=== PATIENT | male | born 1945 | race Asian ===

== ENCOUNTER 2020-12-01 22:57 | Emergency (ER) | payer MEDICARE, MEDICAID ==
[~2020-12-01] VITALS: Ht 170.2 cm; Wt 68.0 kg
--- NOTE | 2020-12-01 22:59 | NUR ---
[facility] BLS TO ER BED 1
[2020-12-01 23:10] VITALS: BP 138/74
--- NOTE | 2020-12-01 23:10 | NUR ---
BIBA FROM [facility] WITH C/O URINARY RETENTION. WAS STRAIGHT CATHED 4 X'S JUKEBOX CHECKER, NO URINE WAS OBTAINED. ABDOMEN IS ROUND AND FIRM
[2020-12-02 01:06] LABS: APPEARANCE,URINE CLOUDY (CLEAR); BILIRUBIN,URINE NEGATIVE (NEGATIVE); BLOOD, URINE 2+ (NEGATIVE); COLOR,URINE YELLOW (YELLOW); LEUKOCYTE ESTERASE ,URINE 2+ (NEGATIVE); NITRITE, URINE NEGATIVE (NEGATIVE); UGLUCOSE NEGATIVE (NEGATIVE)
[2020-12-02 01:22] LABS: RBC,URINE 0-5 /HPF (0-5); WBC,URINE TOO MANY TO COUNT /HPF (0-5)
[2020-12-02] MEDS ORDERED: CEPH-588 PO (01:54)
--- NOTE | 2020-12-02 02:00 | NUR ---
COUDET CATHETER INSERTED WITH IMMEDIATE RETURN CLOUDY YELLOW URINE. RED DRAINAGE NOTED AROUND MEATUS. UA OBTAINED AND SENT TO LAB
[2020-12-02] MEDS ORDERED: cefTRIAXone 1,000 MG VIAL ONE (03:25)
[2020-12-02] MEDS ORDERED: LIDOCAINE MPF 1% 5 ML ONE (03:26)
[2020-12-02] MEDS: cefTRIAXone 1,000 MG in LIDOCAINE MPF 1% 2.1 ML IM ONE (03:32)
--- NOTE | 2020-12-02 04:00 | NUR ---
RESTING IN BED WITH EYES CLOSED. RESPIRATIONS REGULAR AND UNLABORED. F/C CONTINUES TO DRAIN CLOUDY YELLOW URINE
--- NOTE | 2020-12-02 07:07 | NUR ---
REPORT AND CONTINUATION OF CARE REVEIVED FROM KOKO MOORE.
--- NOTE | 2020-12-02 07:30 | NUR ---
PATIENT OBSERVED IN BED RESTING, VSS, EMPTIED 1020CC OF DARK MATT/CLOUDY URINE FROM HARVEY CATHETER COLLECTION BAG.
--- NOTE | 2020-12-02 09:26 | NUR ---
PATIENT IN BED RESTING, VSS. PATIENT AWOKE WHEN REPOSITIONING IN BED, THEN RETURNED TO SLEEP.
--- NOTE | 2020-12-02 10:47 | NUR ---
PATIENT REPOSITIONED IN BED, AWAKE AND ALERT. VSS.
--- NOTE | 2020-12-02 12:03 | NUR ---
PATIENT IN BED AWAKE AND ALERT, VSS.
--- NOTE | 2020-12-02 12:37 | NUR ---
mealtray at bedside, emt assisting with feeding.
--- NOTE | 2020-12-02 13:43 | NUR ---
PATIENT IN BED AWAKE AND ALERT, HOB LOWERED PER PATIENT REQUEST. VSS
[2020-12-02 15:12] VITALS: BP 130/78
--- NOTE | 2020-12-02 15:15 | NUR ---
Patient discharged with v/s stable. Written and verbal after care instructions given and explained. Patient alert, oriented and verbalized understanding of instructions. Ambulance Transport with to senior care. All questions addressed prior to discharge. ID band removed. Patient advised to follow up with PMD. Rx of KEFLEX given. Patient educated on indication of medication including possible reaction and side effects. Opportunity to ask questions provided and answered.
== END 2020-12-02 15:15 | disposition home or self-care (01) ==
LOC: MED 22:57
DX: N39.0 Urinary tract infection, site not specified (principal); R33.9 Retention of urine, unspecified; I10 Essential (primary) hypertension; Z79.899 Other long term (current) drug therapy
CPT/HCPCS: 51702; 81001; 87086; 96372; 99285; J0696; J2001

== ENCOUNTER 2022-05-18 00:34 | Inpatient (IN) | payer OTHER, MEDICARE ==
[~2022-05-18] VITALS: Ht 167.6 cm; Wt 63.5 kg
[2022-05-18 00:34] VITALS: BP 125/72
[~2022-05-18 00:34] MED LIST: CEPH-588 PO
--- NOTE | 2022-05-18 00:34 | NUR ---
TO BED #03,BIBA FROM [facility] WITH C/O ABD DISTENTION FOR 12 HOURS.
[2022-05-18] MEDS ORDERED: MORPHINE SULFATE 4 MG/ML SYR IM ONE (00:55)
--- NOTE | 2022-05-18 01:01 | NUR ---
16 fr bailey catheter placed. 1400 mL of output. Addendum: 05/18/22 at 0653 by [email or web address] 1700mL output after FC placement
[2022-05-18] MEDS ORDERED: MORPHINE SULFATE 2 MG/ML SYR IM STA (01:02)
--- NOTE | 2022-05-18 01:10 | NUR ---
Urine collected sent to lab
[2022-05-18 01:16] LABS: BASOPHILS % (AUTO) 0.3 % (0.0-2.0); EOSINOPHILS % (AUTO) 0.1 % (0.0-4.0); HEMATOCRIT 40.1 % (36-52); HEMOGLOBIN 13.2 g/dL (12.0-18.0); LYMPHOCYTES # (AUTO) 0.8 K/uL (2.0-11.5); MEAN CORPUSCULAR HEMOGLOBIN 28 pg (27-31); MEAN CORPUSCULAR HGB CONC 33 g/dL (33-37); MEAN CORPUSCULAR VOLUME 86.6 fL (80-94); MONOCYTES # (AUTO) 0.6 K/uL (0.8-1.0); MONOCYTES % (AUTO) 5.1 % (1.7-9.3); NEUTROPHILS # (AUTO) 11.3 K/uL (1.8-7.7); NEUTROPHILS % (AUTO) 88.5 % (42.2-75.2); PLATELET COUNT (AUTO) 245 K/uL (140-450); RED BLOOD CELL COUNT(AUTO) 4.63 MIL/uL (4.20-6.10); WHITE BLOOD COUNT (AUTO) 12.7 K/uL (4.8-10.8)
[2022-05-18 01:23] LABS: APPEARANCE,URINE CLEAR (CLEAR); BILIRUBIN,URINE 1+ (NEGATIVE); BLOOD, URINE 3+ (NEGATIVE); COLOR,URINE YELLOW (YELLOW); LEUKOCYTE ESTERASE ,URINE 2+ (NEGATIVE); NITRITE, URINE NEGATIVE (NEGATIVE); UGLUCOSE NEGATIVE (NEGATIVE)
[2022-05-18 01:30] LABS: ALBUMIN 3.2 g/dL (3.4-5.0); ANION GAP 15.3 (8-16); ASPARTATE AMINOTRANSFERASE 7 U/L (15-37); CARBON DIOXIDE 26.3 mmol/L (21-32); CHLORIDE 103 mmol/L (98-107); CREATININE 2.2 mg/dL (0.6-1.3); GLUCOSE 183 mg/dL (74-106); POTASSIUM 4.6 mmol/L (3.5-5.1); SODIUM SERUM 140 mmol/L (136-145); TOTAL BILIRUBIN 0.9 mg/dL (0.0-1.0); UREA NITROGEN, BLOOD 53 mg/dL (7-18)
[2022-05-18 01:32] LABS: RBC,URINE 0-5 /HPF (0-5); WBC,URINE TOO MANY TO COUNT /HPF (0-5)
[2022-05-18] MEDS ORDERED: cefTRIAXone 1,000 MG VIAL ONE (02:29)
[2022-05-18] MEDS ORDERED: MORPHINE SULFATE 2 MG/ML SYR IVP PRN (03:00)
[2022-05-18] MEDS ORDERED: ONDANSETRON 4 MG/2 ML VIAL IVP PRN (03:00)
[2022-05-18] MEDS ORDERED: LORazepam 2 MG/ML VIAL IVP PRN (03:00)
[2022-05-18] MEDS ORDERED: ACETAMINOPHEN 325 MG TAB PO PRN (03:00)
--- NOTE | 2022-05-18 04:12 | NUR ---
Report given Shawn SUTHERLAND
[2022-05-18 04:25] VITALS: BP 83/53
--- NOTE | 2022-05-18 04:30 | NUR ---
RECEIVED REPORT FROM DAY SHIFT NURSE MARIBEL FOR CONTINUITY OF CARE. PATIENT IS A&O X0-1. PATIENT IS ON ROOM AIR, BREATHING IS NORMAL WITH SYMMETRICAL RISE AND FALL OF CHEST. IV IS A 24G LEFT RING FINGER; RUNNING NS 125. PATIENT HAS CATHETER; CATHETER SHOWS DARK BROWN TO BLACK URINE. PATIENT'S BP WAS 83/53. WILL NOTIFY OVEN DRIER TENDER PHYSICIAN.
[2022-05-18] MEDS: NACL 0.9% 1,000 ML IV SCH ×3 (04:45→19:00)
[2022-05-18] MEDS ORDERED: NACL 0.9% 1,000 ML IV SCH (06:20)
--- NOTE | 2022-05-18 07:30 | NUR ---
MESSAGED DR. MOSLEY ABOUT PATIENT'S BP BEING 83/53 AND COLOR OF URINE (SENDING PICTURE OF URINE TO ). DID NOT HEAR BACK. CALLED EXCHANGE AND WAS TOLD DR. MARQUEZ WAS VEHICLE FUEL SYSTEMS CONVERTER. PAGED DR. MARQUEZ AND MESSAGED HIM THE SAME MESSAGE DR. MOSLEY. RECEIVED A CALL BACK FROM DR. DAHL WHO WAS ACTUALLY VEHICLE FUEL SYSTEMS CONVERTER AT 0617. INFORMED DR[address] DAHL OF BP AND COLOR OF URINE. DR. DAHL ORDERED 1LITTER BOLUS TO BE DONE ON PATIENT. ADMINISTERED BOLUS. BOLUS FINISHED AT 0720; BP NOW 101/56. WILL ENDORSE TO DAY SHIFT NURSE.
--- NOTE | 2022-05-18 07:35 | NUR ---
ENDORSED TO DAY SHIFT NURSE ADZE FOR CONTINUITY OF CARE. PATIENT IS STABLE.
[2022-05-18 08:00] VITALS: BP 90/54
[2022-05-18 12:00] VITALS: BP 101/52
--- NOTE | 2022-05-18 14:09 | NUR ---
DC PLANNING PER NOTES, PT IS ALERT AND ORIENTED X0 THEREFORE SW OUTREACHED TO PTS DAUGHTERS RADU AND MARIBEL @ [phone] TO GATHER COLLATERAL INFORMATION, HOWEVER, NO ANSWER. UNABLE TO LEAVE MESSAGE.
[2022-05-18] MEDS ORDERED: DIGOXIN 0.25 MG/ML AMP IV SCH (14:30)
--- NOTE | 2022-05-18 15:00 | NUR ---
HERE, PATIENT SEEN. DIGOXIN GIVEN ORDERED, MONITORED CLOSELY STABLE AT HIS TIME.
[2022-05-18 16:00] VITALS: BP 96/50
--- NOTE | 2022-05-18 19:16 | NUR ---
RECEIVED REPORT FROM DAY SHIFT NURSE ADZE FOR CONTINUITY OF CARE. PT AWAKE IN BED. RESPIRATIONS EVEN AND UNLABORED ON RA. HARVEY CATHETER IN PLACE, DRAINING TO GRAVITY. IV SITE ON LEFT RING FINGER, INFUSING IVF. POC DISCUSSED WITH PT AND KOKO LOU. CALL LIGHT WITHIN REACH. SAFETY PRECAUTIONS IN PLACE.
[2022-05-18 20:00] VITALS: BP 107/67
--- NOTE | 2022-05-18 20:00 | NUR ---
Patient's Plan of Care was discussed and reviewed with CELLAR WORKER: LUIS MIGUEL RIVERA
--- NOTE | 2022-05-18 20:04 | NUR ---
V/S TAKEN. WITHIN NORMAL LIMITS. REMAINED IN BED, CLEAN AND DRY.
[2022-05-19] VITALS: BP 107/71
[2022-05-19] MEDS: NACL 0.9% 1,000 ML IV SCH (03:00)
[2022-05-19 04:00] VITALS: BP 95/68
--- NOTE | 2022-05-19 04:36 | NUR ---
V/S WAS TAKEN. DID MORNING CARE. PT TOLERATED WELL. NO SIGNS OF PAIN. NO DISTRESS NOTED.
[2022-05-19 07:07] LABS: BASOPHILS % (AUTO) 0.2 % (0.0-2.0); EOSINOPHILS # (AUTO) 0.1 K/uL (0-0.4); EOSINOPHILS % (AUTO) 0.8 % (0.0-4.0); HEMATOCRIT 32.1 % (36-52); HEMOGLOBIN 10.6 g/dL (12.0-18.0); LYMPHOCYTES % (AUTO) 12.8 % (20.5-51.1); MEAN CORPUSCULAR HEMOGLOBIN 29 pg (27-31); MEAN CORPUSCULAR HGB CONC 33 g/dL (33-37); MEAN CORPUSCULAR VOLUME 87.9 fL (80-94); MONOCYTES # (AUTO) 0.5 K/uL (0.8-1.0); MONOCYTES % (AUTO) 6.2 % (1.7-9.3); NEUTROPHILS # (AUTO) 6.3 K/uL (1.8-7.7); PLATELET COUNT (AUTO) 177 K/uL (140-450); RED BLOOD CELL COUNT(AUTO) 3.65 MIL/uL (4.20-6.10); RED CELL DISTRIBUTION WIDTH 14.9 % (11.6-13.7); WHITE BLOOD COUNT (AUTO) 7.8 K/uL (4.8-10.8)
--- NOTE | 2022-05-19 07:17 | NUR ---
GAVE BEDSIDE REPORT TO KOKO CALLAWAY. ALL NEEDS MET THROUGHOUT SHIFT. PT IS STABLE.
[2022-05-19 07:22] LABS: ALBUMIN 2.6 g/dL (3.4-5.0); ANION GAP 14.6 (8-16); CARBON DIOXIDE 23.9 mmol/L (21-32); CHLORIDE 112 mmol/L (98-107); CREATININE 1.2 mg/dL (0.6-1.3); GLUCOSE 90 mg/dL (74-106); MAGNESIUM 2.1 mg/dL (1.8-2.4); POTASSIUM 3.5 mmol/L (3.5-5.1); SODIUM SERUM 147 mmol/L (136-145); TOTAL BILIRUBIN 0.4 mg/dL (0.0-1.0); UREA NITROGEN, BLOOD 53 mg/dL (7-18)
[2022-05-19 07:33] LABS: ASPARTATE AMINOTRANSFERASE 3 U/L (15-37)
[2022-05-19 08:00] VITALS: BP 128/59
--- NOTE | 2022-05-19 10:18 | NUR ---
PATIENT HAS BEEN SCREENED AND CATEGORIZED MODERATE NUTRITION RISK. PATIENT WILL BE SEEN WITHIN 3-5 DAYS OF ADMISSION. MINNA SHAH RD
[2022-05-19] MEDS: NACL 0.45% 1,000 ML IV SCH ×2 (11:00→19:45)
[2022-05-19 12:00] VITALS: BP 131/78
[2022-05-19 16:00] VITALS: BP 133/81
--- NOTE | 2022-05-19 19:05 | NUR ---
RECEIVED REPORT FROM DAY SHIFT NURSE NILTON FOR CONTINUITY OF CARE. PT AWAKE IN BED. ON REGULATORY MANAGER. RESPIRATIONS EVEN AND UNLABORED ON RA. NO SIGNS OF PAIN. IVF INFUSING. POC DISCUSSED WITH THE PT AND RN DASHA. CALL LIGHT WITHIN REACH. SAFETY PRECAUTIONS IN PLACE.
[2022-05-19 20:00] VITALS: BP 134/75
--- NOTE | 2022-05-19 20:00 | NUR ---
Patient's Plan of Care was discussed and reviewed with ROUTER TENDER: LUIS MIGUEL RIVERA
[2022-05-19] MEDS: METOPROLOL 25 MG TAB PO SCH (20:37)
--- NOTE | 2022-05-19 20:37 | NUR ---
V/S TAKEN. ADMINISTERED DUE MEDS. PT TOLERATED WELL.
[2022-05-20] VITALS: BP 158/85
[2022-05-20] MEDS: NACL 0.45% 1,000 ML IV SCH ×3 (00:35→15:52)
[2022-05-20 04:00] VITALS: BP 166/91
--- NOTE | 2022-05-20 04:00 | NUR ---
PT WAS UNEASY, MOANING, IRRITABLE. DID MORNING CARE. PT HAD BM. CLEANED AND CHANGED DIAPERS. PT TOLERATED WELL.
--- NOTE | 2022-05-20 04:27 | NUR ---
PT STILL MOANING, RESTLESS, TEARY EYED, BP WAS ELEVATED. KOKO LOU WAS INFORMED. PRN MED FOR PAIN WAS GIVEN BY RN. PT CLOSELY MONITORED.
--- NOTE | 2022-05-20 07:10 | NUR ---
ENDORSED PT TO KOKO SONI FOR CONTINUITY OF CARE. ALL NEEDS MET THROUGHOUT SHIFT. PT IS STABLE.
[2022-05-20 08:00] VITALS: BP 156/78
[2022-05-20] MEDS: METOPROLOL 25 MG TAB PO SCH (09:32)
[2022-05-20] MEDS ORDERED: METO25TA PO (09:56)
[2022-05-20] MEDS ORDERED: CEFD300C3 PO (09:56)
[2022-05-20] MEDS ORDERED: ACET-1182 PO (09:58)
--- NOTE | 2022-05-20 12:28 | NUR ---
CALL [facility] AND RECEIVE UPDATE INFORMATION REGARDING TO PATIENT'S BED NUMBER IS [id number]. PENDING UPDATE FROM [facility] FOR PATIENT' ELECTRONIC WARFARE LINGUIST TIME Addendum: 05/20/22 at 1343 by Gail Naik RN GIVING REPORT TO [facility] [[facility] ] NURSE STONECUTTER ASSISTANTMANDIE THAT PATIENT WILL TRANSFER BACK TO [facility] AFTER 1430 BY [facility] ([phone]). PATIENT'S NEXT KIN, DAUGHTER, AND PATIENT'S FRIENDS INFORMED THAT PATIENT WILL TRANSFER BACK TO [facility] Addendum: 05/20/22 at 8749 by Gail Naik RN [facility] NON-EMERGENCY MEDICAL TRANSPORT IS HERE TO ELECTRONIC WARFARE LINGUIST PATIENT FOR [facility], WRIST BAND & iV ACCESS REMOVED, TEL MONITOR DISCONTINUED EARLY. PATIENT IS READY FOR ELECTRONIC WARFARE LINGUIST LONG BEFORE TRANSPORT ARRIVE. FAMILY AWARE THE TRANSACTION
[2022-05-20 13:06] VITALS: BP 156/78
== END 2022-05-20 16:40 | DRG 720 ==
LOC: MED 00:34 → OBSVTOIN 03:02 → MMU 03:02 → MTU 03:58
PROVIDERS: ADMIT Hospitalist; ATTEND Hospitalist
DX: A41.9 Sepsis, unspecified organism (principal); G93.41 Metabolic encephalopathy; E44.1 Mild protein-calorie malnutrition; N17.9 Acute kidney failure, unspecified; N39.0 Urinary tract infection, site not specified; I69.354 Hemiplegia and hemiparesis following cerebral infarction affecting left non-dominant side; I48.91 Unspecified atrial fibrillation; E11.9 Type 2 diabetes mellitus without complications; R33.9 Retention of urine, unspecified; Z20.822 Contact with and (suspected) exposure to COVID-19; Z79.01 Long term (current) use of anticoagulants; Z68.22 Body mass index [BMI] 22.0-22.9, adult
CPT/HCPCS: 36415; 80053; 81001; 83735; 85025; 87086; 96365; 96372; 99285; J0696; J1160; J2270; J7060

== ENCOUNTER 2022-07-08 10:59 | Inpatient (IN) | payer OTHER, MEDICARE ==
[~2022-07-08] VITALS: Ht 162.6 cm; Wt 70.3 kg
[~2022-07-08 10:59] MED LIST changes: +ACET-1182 PO; +CEFD300C3 PO; -CEPH-588 PO; +METO25TA PO
--- NOTE | 2022-07-08 11:01 | NUR ---
PT BIBA TO BED 7
[2022-07-08] MEDS ORDERED: cefTRIAXone 1,000 MG in DEXT 5% MINI-BAG PLUS 50 ML IV ONE (11:05)
[2022-07-08 11:27] VITALS: BP 99/73
[2022-07-08] MEDS ORDERED: cefTRIAXone 1,000 MG VIAL ONE (11:50)
--- NOTE | 2022-07-08 11:55 | NUR ---
PT BIB BLS RUN FROM [facility] C/O LOW 02 SATURATION, PER STAFF PT WAS 85% ON RA. ON ARRIAL PT ON 3L NC SATURATION 95%. IV INSERTED TO LEFT THUMB #22GUAGE.
[2022-07-08 11:57] LABS: BASOPHILS # (AUTO) 0.1 K/uL (0.00-0.22); BASOPHILS % (AUTO) 0.7 % (0.0-2.0); EOSINOPHILS % (AUTO) 0.1 % (0.0-4.0); HEMATOCRIT 34.7 % (36-52); HEMOGLOBIN 11.4 g/dL (12.0-18.0); LYMPHOCYTES # (AUTO) 1.4 K/uL (2.0-11.5); LYMPHOCYTES % (AUTO) 15.4 % (20.5-51.1); MEAN CORPUSCULAR HEMOGLOBIN 29 pg (27-31); MEAN CORPUSCULAR HGB CONC 33 g/dL (33-37); MEAN CORPUSCULAR VOLUME 87.7 fL (80-94); MONOCYTES # (AUTO) 0.3 K/uL (0.8-1.0); MONOCYTES % (AUTO) 3.8 % (1.7-9.3); NEUTROPHILS # (AUTO) 7.3 K/uL (1.8-7.7); PLATELET COUNT (AUTO) 232 K/uL (140-450); RED BLOOD CELL COUNT(AUTO) 3.96 MIL/uL (4.20-6.10); RED CELL DISTRIBUTION WIDTH 16.8 % (11.6-13.7); WHITE BLOOD COUNT (AUTO) 9.1 K/uL (4.8-10.8)
[2022-07-08 12:09] LABS: APPEARANCE,URINE CLOUDY (CLEAR); COLOR,URINE YELLOW (YELLOW)
[2022-07-08 12:10] LABS: BLOOD, URINE MODERATE (NEGATIVE); PH,URINE 8.5 (5.0-9.0); UGLUCOSE NEGATIVE (NEGATIVE)
[2022-07-08 12:11] LABS: BILIRUBIN,URINE NEGATIVE (NEGATIVE); LEUKOCYTE ESTERASE ,URINE 4+ (NEGATIVE); NITRITE, URINE NEGATIVE (NEGATIVE)
[2022-07-08 12:16] LABS: ALBUMIN 2.9 g/dL (3.4-5.0); ANION GAP 17.4 (8-16); ASPARTATE AMINOTRANSFERASE 22 U/L (15-37); CARBON DIOXIDE 21.7 mmol/L (21-32); CHLORIDE 117 mmol/L (98-107); CREATININE 0.4 mg/dL (0.6-1.3); GLUCOSE 154 mg/dL (74-106); POTASSIUM 4.1 mmol/L (3.5-5.1); SODIUM SERUM 152 mmol/L (136-145); TOTAL BILIRUBIN 0.5 mg/dL (0.0-1.0)
[2022-07-08 12:17] LABS: LIPASE 72 U/L (73-393)
[2022-07-08 12:19] LABS: UREA NITROGEN, BLOOD 67 mg/dL (7-18)
[2022-07-08] MEDS ORDERED: NACL 0.9% 500 ML IV SCH (12:50)
[2022-07-08 13:00] LABS: RBC,URINE >20 (MANY) /HPF (0-5); WBC,URINE >25 (MANY) /HPF (0-5)
[2022-07-08 13:01] LABS: TRICHOMONAS,URINE None Seen /HPF (None Seen); TRIPLE PHOSPHATE CRYSTAL,UR 0-10 /HPF (None Seen); YEAST,URINE None Seen /HPF (None Seen)
[2022-07-08] MEDS ORDERED: TAMS0.4C96 PO (13:19)
[2022-07-08] MEDS ORDERED: KEP500 PO (13:19)
[2022-07-08] MEDS ORDERED: MIRT-91 PO (13:19)
[2022-07-08] MEDS ORDERED: [UNRECOGNIZED DRUG - CODE] PO (13:19)
[2022-07-08] MEDS ORDERED: OXYC40TA3 PO (13:19)
[2022-07-08] MEDS ORDERED: ASCO500T95 PO (13:19)
[2022-07-08] MEDS ORDERED: MULT-2246 PO (13:19)
[2022-07-08] MEDS ORDERED: CARV25TA PO (13:19)
[2022-07-08] MEDS ORDERED: ALBUTEROL 0.083% 2.5 MG/3 ML NEBU INH PRN (13:40)
[2022-07-08] MEDS ORDERED: ACETAMINOPHEN 325 MG TAB PO PRN (13:40)
[2022-07-08] MEDS ORDERED: ONDANSETRON 4 MG/2 ML VIAL IVP PRN (13:40)
[2022-07-08] MEDS ORDERED: FUROSEMIDE 40 MG/4 ML VIAL IVP SCH (13:51)
--- NOTE | 2022-07-08 14:17 | NUR ---
Patient noted to have existing wounds upon arrival to ER. Photos taken of wound and placed in chart. Wound covered with dressing. Physician informed.
[2022-07-08] MEDS ORDERED: carvediloL 12.5 MG TAB PO SCH (14:41)
[2022-07-08] MEDS: carvediloL 12.5 MG TAB PO SCH ×3 (14:42→20:49)
--- NOTE | 2022-07-08 14:50 | NUR ---
DR DAHL MADE AWARE OF INCREASED TROPONIN, ALSO MADE AWARE PT REFUSING PO MEDS OR FOOD AT THIS TIME AND BEING AFIB RVR AT THIS TIME
[2022-07-08 16:15] VITALS: BP 116/74
--- NOTE | 2022-07-08 16:18 | NUR ---
Patient will be admitted to care of DR DAHL. Admited to TELEMETRY. Will go to [id number]. Belongings list completed. Report to MARTY SUTHERLAND.
--- NOTE | 2022-07-08 17:00 | NUR ---
Admitted from , with chief complaint of hypoxia , 76 y/o ,Male, Appropriate, oriented to call light, bed, phone,television, bathroom, smoking policy, visiting hours, procedures, ID bracelet on. Belongings list checked.
[2022-07-08] MEDS: FUROSEMIDE 40 MG/4 ML VIAL IVP SCH (17:10)
[2022-07-08] MEDS ORDERED: DEXTROSE 50% 50 ML SYR IVP PRN (17:55)
[2022-07-08] MEDS ORDERED: INSULIN LISPRO SLIDING SCALE 100 UNITS/ML VIAL SUBQ PRN (17:55)
[2022-07-08] MEDS: BLOOD GLUCOSE MONITORING 1 DEV DEV FS SCH (18:46)
--- NOTE | 2022-07-08 19:10 | NUR ---
RECEIVED PATIENT ASLEEP, IN NO SIGNS OF ACUTE DISTRESS, NO SIGNS OF PAIN NOTED. BED IN LOW AND LOCKED POSITION.
[2022-07-08 20:00] VITALS: BP 117/64
[2022-07-08] MEDS ORDERED: levETIRAcetam 100 MG/ML VIAL IV ONE (20:12)
[2022-07-08] MEDS ORDERED: CEFEPIME 1,000 MG VIAL ONE (20:15)
[2022-07-08] MEDS: levETIRAcetam 500 MG in NACL 0.9% 100 ML IV SCH (20:44)
--- NOTE | 2022-07-08 20:44 | NUR ---
SCHEDULED MEDICATIONS GIVEN ORDERED.
[2022-07-08] MEDS ORDERED: levETIRAcetam 500 MG TAB PO SCH (21:00)
[2022-07-08] MEDS: CEFEPIME 2,000 MG in DEXTROSE 5% 100 ML IV SCH (21:30)
--- NOTE | 2022-07-08 22:05 | NUR ---
BEDSIDE CARE DONE, PATIENT HAD MEDIUM BM, SOFT. PATIENT ON O2 @3LPM NC, NO SIGNS OF DISTRESS NOTED, PATIENT NODS HEAD WHEN ASKED, ALL SAFETY MEASURES IN PLACE.
[2022-07-09] VITALS: BP 105/69
--- NOTE | 2022-07-09 00:01 | NUR ---
PATIENT'S BLOOD SUGAR 144 MG/DL, NO INSULIN COVERAGE NEEDED.
[2022-07-09 04:00] VITALS: BP 117/73
--- NOTE | 2022-07-09 04:10 | NUR ---
NOTIFIED ATTENDING PHYSICIAN OF PATIENT'S HR ON 130'S-140'S, UNCONTROLLED A-FIB'S. MD ORDERED MEDICATION THAT IS LOW ON STOCK, CALLED MD AGAIN, AWAITING RESPONSE.
[2022-07-09] MEDS ORDERED: DILTIAZEM 25 MG/5 ML VIAL IVP PRN ×2 (04:45→14:44)
--- NOTE | 2022-07-09 05:00 | NUR ---
CARDIZEM 10MG IV GIVEN FOR HR 124 ORDERED.
[2022-07-09] MEDS: BLOOD GLUCOSE MONITORING 1 DEV DEV FS SCH ×4 (05:19→18:29)
--- NOTE | 2022-07-09 05:19 | NUR ---
BLOOD SUGAR 122 MG/DL, NO INSULIN COVERAGE NEEDED.
[2022-07-09 06:30] LABS: BASOPHILS # (AUTO) 0.1 K/uL (0.00-0.22); BASOPHILS % (AUTO) 0.8 % (0.0-2.0); EOSINOPHILS # (AUTO) 0.1 K/uL (0-0.4); EOSINOPHILS % (AUTO) 1.3 % (0.0-4.0); HEMATOCRIT 36.8 % (36-52); HEMOGLOBIN 11.8 g/dL (12.0-18.0); LYMPHOCYTES # (AUTO) 1.2 K/uL (2.0-11.5); LYMPHOCYTES % (AUTO) 16.2 % (20.5-51.1); MEAN CORPUSCULAR HEMOGLOBIN 29 pg (27-31); MEAN CORPUSCULAR HGB CONC 32 g/dL (33-37); MEAN CORPUSCULAR VOLUME 88.9 fL (80-94); MONOCYTES # (AUTO) 0.4 K/uL (0.8-1.0); MONOCYTES % (AUTO) 5.5 % (1.7-9.3); NEUTROPHILS # (AUTO) 5.7 K/uL (1.8-7.7); NEUTROPHILS % (AUTO) 76.2 % (42.2-75.2); PLATELET COUNT (AUTO) 231 K/uL (140-450); RED BLOOD CELL COUNT(AUTO) 4.14 MIL/uL (4.20-6.10); RED CELL DISTRIBUTION WIDTH 17.4 % (11.6-13.7); WHITE BLOOD COUNT (AUTO) 7.4 K/uL (4.8-10.8)
--- NOTE | 2022-07-09 07:13 | NUR ---
ENDORSED PATIENT TO DAY NURSE FOR CONTINUITY OF CARE. PATIENT IN STABLE CONDITION.
[2022-07-09 08:00] VITALS: BP 111/77
[2022-07-09 08:30] LABS: ALBUMIN 2.7 g/dL (3.4-5.0); ANION GAP 17.6 (8-16); ASPARTATE AMINOTRANSFERASE 17 U/L (15-37); CARBON DIOXIDE 23.7 mmol/L (21-32); CHLORIDE 116 mmol/L (98-107); CREATININE 0.8 mg/dL (0.6-1.3); GLUCOSE 140 mg/dL (74-106); MAGNESIUM 2.4 mg/dL (1.8-2.4); POTASSIUM 3.3 mmol/L (3.5-5.1); SODIUM SERUM 154 mmol/L (136-145); TOTAL BILIRUBIN 0.6 mg/dL (0.0-1.0)
--- NOTE | 2022-07-09 08:42 | NUR ---
PATIENT HAS BEEN SCREENED AND CATEGORIZED HIGH NUTRITION RISK. PATIENT WILL BE SEEN WITHIN 1-2 DAYS OF ADMISSION. 07/08/22-07/10/22 REFERRAL RECEIVED 07/09/22 FOR PRESSURE ULCER/WOUNDS PATIENT WILL BE SEEN WITHIN 1-2 DAYS OF REFERRAL REVIEWED BY MINNA SHAH RD
[2022-07-09 08:47] LABS: UREA NITROGEN, BLOOD 69 mg/dL (7-18)
--- NOTE | 2022-07-09 09:10 | NUR ---
CARDIO MD PATIENT VISIT. PT HR WAS 140 RADIO BROADCASTER VERBALIZED TO GIVE PRN DILTIAZEM. DILTIAZEM GIVEN. WILL REASSESS.
[2022-07-09] MEDS: carvediloL 12.5 MG TAB PO SCH (09:19)
[2022-07-09] MEDS: FUROSEMIDE 40 MG/4 ML VIAL IVP SCH ×2 (09:19→17:03)
[2022-07-09] MEDS: ASPIRIN 81 MG TAB.CHEW PO SCH (09:21)
[2022-07-09] MEDS: ENOXAPARIN 40 MG/0.4 ML SYR SUBQ SCH (09:22)
--- NOTE | 2022-07-09 09:25 | NUR ---
REASSESSED PT HR. HR IS 106
[2022-07-09] MEDS: CEFEPIME 2,000 MG in DEXTROSE 5% 100 ML IV SCH ×2 (09:29→22:00)
[2022-07-09] MEDS: levETIRAcetam 500 MG in NACL 0.9% 100 ML IV SCH ×2 (09:29→21:02)
--- NOTE | 2022-07-09 10:17 | NUR ---
WOUND CARE EVALUATION NOTE: SKIN ASSESSMENT DONE WITH THIS 76 Y/O PT ADMITTED WITH INITIAL DX HYPOXIA. PAST MEDICAL HX INCLUDES HX OF HTN, DM, ATRIAL FIBRILLATION, STROKE WITH LEFT HEMIPLEGIA, SDH, BPH/URINARY RETENTION WITH CHRONIC INDWELLING HARVEY .PT ADMITTED FROM SNF WITH PRESSURE INJURY. ALL ABOVE INFORMATION OBTAINED FROM ADMISSION H&P AND CHART REVIEW. PT IS INTUBATED, TF, SKIN IS WARM AND DRY, BILATERAL LOWER EXTREMITY NO EDEMA. DORSAL PEDAL PULSES PRESENT AND NORMAL. CAPILLARY REFILLED >3 SEC. X 10 TOES. F/C PATENT WITH SMALL AMOUNT MATT COLOR URINE OUT PUT OBSERVED. INTEGUMENTARY: -LIPS AND ORAL MUCOSA DRY AND CLEAN. SKIN INTACT. -MOISTURE ASSOCIATED SKIN DAMAGE(MASD) TO: B/L GROINS, SCROTAL SKIN RED, MOIST -PRESSURE INJURY SACROCOCCYX UN-STAGEABLE 4X5CM, WOUND BED 100% SANTANA /BROWN COLOR, MOIST, NO ODOR, WOUND EDGE FLAT, RAMIRO-WOUND SKIN MOIST SURROUNDING NON-BLANCHABLE REDNESS INDICATED FURTHER DAMAGE -BILATERAL HEELS MUSHY, INTACT SKIN RECOMMENDATIONS: -APPLY THIN LAYER OF HYDRAGUARD TO R/L GROINS AND SCROTAL BID AND PRN IF SOILING - CLEANSE SACRALCOCCYX WITH WOUND CLEANSING SOLUTION, PAT DRY, APPLY HYDROGEL TO WOUND BED AND COVER WITH FOAM DRESSING QD AND PRN IF SOILING -APPLY FOAM DRESSING TO HEELS Q3 DAYS AND PRN IF SOILING PREVENTION -PRESSURE REDISTRIBUTION SURFACE THERAPY VICENTA ISOFLEX KACEY MATTRESS -POSITIONING: TURN AND REPOSITION PATIENT Q 2H OR SOONER USE PILLOWS TO KEEP BONY PROMINENCES FROM DIRECT CONTACT WITH SURFACES USE REPOSITIONING WEDGES TO PROVIDE 30-DEGREE ANGLE FOR SIDE LYING POSITIONS OFFLOADING OR FOAM DRESSING TO ALL TUBING TO PREVENT MEDICAL DEVICES RELATED PRESSURE INJURY -RE-EVALUATING AND MANAGING INCONTINENCE MONITOR SKIN CONDITION DURING POSITION CHANGE DO NOT MASSAGE REDNESS, BONY PROMINENCES, DO NOT USE DONUT-TYPE DEVICES FREQUENT RAMIRO-CARE AND PROVIDE BARRIER CREAMS PRN IF SOILING MOISTURE CONTROL BY OFFER BED LANCASTER/URINAL /ABSORBENT PAD TO WICK AND HOLD MOISTURE. KEEP SKIN DRY AND PROTECT FROM FRICTION -MANAGE FRICTION/SHEAR/MOBILITY KEEP HOB AT THE LOWEST LEVEL OF ELEVATION NO MORE THAN 30 DEGREES UNLESS OTHERWISE CONTRAINDICATED USE LIFT SHEET OR TRANSFER DEVICE TO MOVE PATIENT AND PREVENT LATERAL SHEER. PROTECT HEELS, ELBOWS BONY PROMINENCES WITH SKIN BERRIES OR FOAM DRESSING IF EXPOSED TO FRICTION OFFLOAD BILATERAL HEELS BY PLACING PILLOWS UNDER CALVES AT ALL TIMES, UNLESS OTHERWISE CONTRAINDICATED -NUTRITION: PLEASE FOLLOW RD RECOMMENDATIONS AND OFFER NUTRITION SUPPLEMENTS IF ORDERED. PLEASE CONTACT WOUND CARE NURSE FOR ANY QUESTION AND CHANGE OF WOUND CONDITION.
[2022-07-09] MEDS ORDERED: HYDRAGUARD CREAM TP PRN (10:20)
[2022-07-09] MEDS ORDERED: SKINTEGRITY HYDROGEL TP PRN (10:20)
[2022-07-09 12:00] VITALS: BP 116/76
--- NOTE | 2022-07-09 12:21 | NUR ---
DC PLANNING ASSESSMENT COMPLETE PLEASE REFER TO ASSESSMENT FOR ADDITIONAL DETAILS ATTEMPTED TO MEET PT AT BEDSIDE HOWEVER, PT BEING SEEN BY MAIL WEIGHER, THEREFORE, LU OUTREACHED TO [facility] AND GATHERED COLLAT INFO FROM PIA [facility] ADMIN. PIA REPORTS PT IS IN RETIREMENT CARE WITH [facility], ADMISSION 10/04/20. PTS EMERGENCY CONTACT RADU [phone]. PIA DENIES AD IN PLACE. PT REPORTS PT IS ANOX1 AT BASELINE AND IS REPORTED TO BE PRIMARILY BEDBOUND AND TOTAL CARE AT FACILITY. PT IS REPORTED NOT TO DISPLAY ANY BX'S AND IS COMPLAINT WITH CARE. PT HAS HX OF DIABETES THAT IS WELL CONTROLLED AT FACILITY. PIA REPORTS FAMILY IS ACTIVE IN CARE AND IS AWARE PT IS CURRENTLY ADMITTED TO [facility]. PIA REPORTS DC PLAN IS FOR PT TO RETURN TO [facility], ONCE MEDICALLY STABLE. Addendum: 07/09/22 at 1223 by Leelee BECKETT Amended: Links added.
[2022-07-09] MEDS: HYDRAGUARD CREAM TP SCH (13:00)
[2022-07-09] MEDS: METOPROLOL 50 MG TAB PO SCH ×2 (13:25→21:00)
[2022-07-09] MEDS ORDERED: DIGOXIN 0.25 MG/ML AMP IV SCH ×2 (13:35→20:00)
--- NOTE | 2022-07-09 14:50 | NUR ---
07/09/22 RD INITIAL ASSESSMENT COMPLETED PLEASE REFER TO NUTRITION ASSESSMENT UNDER CARE ACTIVITY FOR ESTIMATED NUTRITIONAL NEEDS. 1. RECOMMEND MECHANICAL SOFT, CARDIAC, [id number] DIET WITH PROSOURCE BID FOR WOUND SUPPORT TOLERATED -PROSOURCE BID PROVIDES 120 KCAL AND 30 GM PROTEIN DAILY 2. MONITOR PO INTAKE AND NUTRITION RELATED LAB VALUES 3. RD TO FOLLOW-UP 3-5 DAYS, MODERATE RISK REVIEWED BY MINNA SHAH RD
[2022-07-09 16:00] VITALS: BP 107/72
--- NOTE | 2022-07-09 18:30 | NUR ---
ST SWALLOW EVALUATION FOR PUREE NECTAR
--- NOTE | 2022-07-09 19:15 | NUR ---
ENDORSED PT TO PM SHIFT NURSE FOR CONTINUATION OF CARE.
--- NOTE | 2022-07-09 19:20 | NUR ---
RECEIVED REPORT FROM DAY SHIFT RN FOR CONTINUITY OF CARE. PT IS RESTING IN BED NOT IN ANY DISTRESS. PT IS ON RA SATING 95%. BREATHING EVEN AND UNLABORED. PT HAS LEFT THUMB 22 GAUGE SALINE LOCK. POC DISCUSSED. SAFETY MEASURES TAKEN. WILL CONTINUE TO MONITOR THE PT.
[2022-07-09 20:00] VITALS: BP 93/74
[2022-07-09] MEDS ORDERED: POTASSIUM CHLORIDE 10 MEQ TABER PO ONE (20:10)
--- NOTE | 2022-07-09 21:05 | NUR ---
SCHEDULE MEDICATIONS GIVEN. NO ADVERSE REACTION NOTED. LOPRESSOR HELD FOR LOW BP. WILL CONTINUE TO MONITOR THE PT.
[2022-07-10] VITALS (8 sets, daily range): BP systolic 116–148; BP diastolic 75–87
[2022-07-10] MEDS: BLOOD GLUCOSE MONITORING 1 DEV DEV FS SCH ×4 (00:15→18:15)
[2022-07-10] MEDS: HYDRAGUARD CREAM TP SCH ×2 (01:05→13:00)
[2022-07-10] MEDS ORDERED: DIGOXIN 0.25 MG/ML AMP IV SCH (02:00)
--- NOTE | 2022-07-10 02:11 | NUR ---
DIGOXIN GIVEN. BP WITHIN NORMAL RANGE. HR ELEVATED. NO ADVERSE REACTION NOTED.
--- NOTE | 2022-07-10 03:55 | NUR ---
ENDORSED PT TO BIOFUELS ENGINEERING MANAGER RN DASHA FOR CONTINUITY OF CARE. PT IS STABLE.
--- NOTE | 2022-07-10 03:59 | NUR ---
RECEIVED PATIENT FROM JOSEPH RN FOR CONTINUITY OF CARE. PATIENT SLEEPING IN BED ON ROOM AIR. NO S/S OF RESPIRATORY DISTRESS. RESPIRATION EVEN UNLABORED. IV ACCESS TO LEFT THUMB INTACT AND PATENT. CALL LIGHT ON EASY REACH.
[2022-07-10] MEDS: METOPROLOL 50 MG TAB PO SCH ×2 (05:34→13:00)
--- NOTE | 2022-07-10 05:34 | NUR ---
DUE MEDS GIVEN ORDERED.
--- NOTE | 2022-07-10 05:44 | NUR ---
CHECKED BLOOD SUGAR 105. NO INSULIN COVERAGE NEEDED.
--- NOTE | 2022-07-10 07:20 | NUR ---
RECEIVED PATIENT FROM PM SHIFT NURSE FOR CONTINUATION OF CARE. PATIENT SEEN ON BED ASLEEP. NORMAL RISE AND FALL OF CHEST. PATIENT CARE RESUMED.
--- NOTE | 2022-07-10 07:26 | NUR ---
GAVE REPORT TO AM NURSE FOR CONTINUITY OF CARE.
[2022-07-10] MEDS ORDERED: SKINTEGRITY HYDROGEL TP SCH (09:00)
[2022-07-10] MEDS: CEFEPIME 2,000 MG in DEXTROSE 5% 100 ML IV SCH (09:00)
[2022-07-10] MEDS: levETIRAcetam 500 MG in NACL 0.9% 100 ML IV SCH (09:00)
[2022-07-10] MEDS: ENOXAPARIN 40 MG/0.4 ML SYR SUBQ SCH (10:04)
[2022-07-10] MEDS: ASPIRIN 81 MG TAB.CHEW PO SCH (10:05)
[2022-07-10] MEDS: FUROSEMIDE 40 MG/4 ML VIAL IVP SCH ×2 (10:05→17:26)
[2022-07-10] MEDS ORDERED: ROC1PM IV (14:33)
[2022-07-10] MEDS ORDERED: METO25TA PO (14:34)
--- NOTE | 2022-07-10 16:43 | NUR ---
DC PLANNING: PATIENT IS RETURNING TO [facility] [place] GO TO ROOM 35 ARRANGED TRANSPORT WITH [facility] OCCUPATIONAL THERAPIST'S ASSISTANT TIME 6 PM NOTIFIED LAURE JHA CM TO FOLLOW Addendum: 07/10/22 at 1649 by Paola Larkin RN OCCUPATIONAL THERAPIST'S ASSISTANT TIME CHANGED TO 8:30 PM BY [facility]. LIZZETH KELSEY RN
--- NOTE | 2022-07-10 19:20 | NUR ---
ENDORSED PATIENT TO PM NURSE FOR CONTINUATION OF CARE
--- NOTE | 2022-07-10 19:30 | NUR ---
RECEIVED REPORT FROM DAY SHIFT RN FOR CONTINUITY OF CARE. PT IS RESTING IN BED NOT IN ANY DISTRESS. FC IN PLACE DRAINING TO GRAVITY. PT HAS IV ON LEFT THUMB 22 GAUGE SALINE LOCK. PT IS SCHEDULE TO GO BACK TO [facility] AT 2029 ACCORDING TO DAY SHIFT RN.
--- NOTE | 2022-07-10 20:30 | NUR ---
[facility] PICKED UP PT. PT LEFT SAFELY BACK TO FACILITY.
== END 2022-07-10 20:30 | DRG 720 ==
LOC: MED 10:59 → MTU 13:45
PROVIDERS: ADMIT Internal Medicine; ATTEND Internal Medicine
DX: A41.9 Sepsis, unspecified organism (principal); J96.01 Acute respiratory failure with hypoxia; J69.0 Pneumonitis due to inhalation of food and vomit; E87.0 Hyperosmolality and hypernatremia; R53.2 Functional quadriplegia; I48.20 Chronic atrial fibrillation, unspecified; S31.000A Unspecified open wound of lower back and pelvis without penetration into retroperitoneum, initial encounter; N39.0 Urinary tract infection, site not specified; I69.354 Hemiplegia and hemiparesis following cerebral infarction affecting left non-dominant side; I50.9 Heart failure, unspecified; I11.0 Hypertensive heart disease with heart failure; X58.XXXA Exposure to other specified factors, initial encounter; N40.0 Benign prostatic hyperplasia without lower urinary tract symptoms; Z20.822 Contact with and (suspected) exposure to COVID-19; Z79.01 Long term (current) use of anticoagulants; Z85.46 Personal history of malignant neoplasm of prostate; Z79.899 Other long term (current) drug therapy; Z74.01 Bed confinement status; Y93.89 Activity, other specified; Y92.89 Other specified places as the place of occurrence of the external cause; Y99.8 Other external cause status
CPT/HCPCS: 36415; 71045; 80053; 81001; 82948; 83605; 83690; 83735; 83880; 84484; 85025; 87040; 87086; 92526; 93005; 96365; 96375; 99285; A6248; J0692; J0696; J1160; J1650; J1815; J1940; J1953; J3490; J7060

== ENCOUNTER 2022-07-13 11:58 | Inpatient (IN) | payer OTHER, MEDICARE ==
[~2022-07-13] VITALS: Ht 167.6 cm; Wt 63.0 kg
[~2022-07-13 11:58] MED LIST changes: +ASCO500T95 PO; +CARV25TA PO; +KEP500 PO; +MIRT-91 PO; +MULT-2246 PO; +OXYC40TA3 PO; +ROC1PM IV; +TAMS0.4C96 PO; +[UNRECOGNIZED DRUG - CODE] PO
[2022-07-13 12:18] VITALS: BP 167/89
--- NOTE | 2022-07-13 12:23 | NUR ---
PT IN AMBULANCE BAY WITH [facility] AT THIS TIME.
--- NOTE | 2022-07-13 12:59 | NUR ---
PT. TO BED 9 VIA AMBULANCE. PT. WITH NO ACUTE DISTRESS
--- NOTE | 2022-07-13 13:04 | NUR ---
76 YO MALE BIBA. PATIENT COM[facility] FROM [facility]. FACILITY STATES PATIENT HAS NOT BEEN EATING WELL SINCE LAST VISIT TO THE HOSPITAL. REPORTS PATIENT BASELINE NON-VERBAL, DOES NOT MOVE ANY EXTREMITIES PER REPORT. HX OF STROKE WITH L SIDED DEFICIT.
[2022-07-13 13:31] LABS: ALBUMIN 2.9 g/dL (3.4-5.0); ANION GAP 14.4 (8-16); ASPARTATE AMINOTRANSFERASE 16 U/L (15-37); CARBON DIOXIDE 25.4 mmol/L (21-32); CHLORIDE 128 mmol/L (98-107); CREATININE 0.6 mg/dL (0.6-1.3); GLUCOSE 117 mg/dL (74-106); TOTAL BILIRUBIN 0.5 mg/dL (0.0-1.0); UREA NITROGEN, BLOOD 42 mg/dL (7-18)
--- NOTE | 2022-07-13 13:34 | NUR ---
X-RAY AT BEDSIDE.
[2022-07-13 13:40] LABS: POTASSIUM 2.8 mmol/L (3.5-5.1); SODIUM SERUM 165 mmol/L (136-145)
[2022-07-13 14:09] LABS: BASOPHILS % (AUTO) 0.2 % (0.0-2.0); EOSINOPHILS # (AUTO) 0.3 K/uL (0-0.4); EOSINOPHILS % (AUTO) 2.8 % (0.0-4.0); HEMATOCRIT 40.4 % (36-52); HEMOGLOBIN 12.7 g/dL (12.0-18.0); LYMPHOCYTES # (AUTO) 1.5 K/uL (2.0-11.5); MEAN CORPUSCULAR HEMOGLOBIN 29 pg (27-31); MEAN CORPUSCULAR HGB CONC 32 g/dL (33-37); MEAN CORPUSCULAR VOLUME 91.6 fL (80-94); MONOCYTES # (AUTO) 0.5 K/uL (0.8-1.0); NEUTROPHILS # (AUTO) 10.1 K/uL (1.8-7.7); PLATELET COUNT (AUTO) 198 K/uL (140-450); RED BLOOD CELL COUNT(AUTO) 4.41 MIL/uL (4.20-6.10); WHITE BLOOD COUNT (AUTO) 12.4 K/uL (4.8-10.8)
--- NOTE | 2022-07-13 14:25 | NUR ---
SIERRA PRESTON AT BEDSIDE, PERFORMING US GUIDED IV
[2022-07-13 14:45] LABS: BILIRUBIN,URINE NEGATIVE (NEGATIVE); BLOOD, URINE 2+ (NEGATIVE); COLOR,URINE YELLOW (YELLOW); LEUKOCYTE ESTERASE ,URINE 1+ (NEGATIVE); NITRITE, URINE NEGATIVE (NEGATIVE); UGLUCOSE NEGATIVE (NEGATIVE)
[2022-07-13 15:06] LABS: APPEARANCE,URINE HAZY (CLEAR)
[2022-07-13 15:09] LABS: RBC,URINE >100 /HPF (0-5)
[2022-07-13] MEDS ORDERED: LACTATED RINGERS 1,000 ML IV ONE (15:35)
[2022-07-13] MEDS ORDERED: cefTRIAXone 1,000 MG VIAL ONE (15:37)
[2022-07-13] MEDS ORDERED: INSU100S45 SUBQ (16:06)
[2022-07-13] MEDS ORDERED: HYDROcodone/APAP 5/325 MG 1 TAB TAB PO PRN (16:10)
[2022-07-13] MEDS ORDERED: MAG SULF 2000 MG/WATER PREMIX 50 ML IV PRN (16:10)
[2022-07-13] MEDS ORDERED: CHOLECALCIFEROL (16:10)
[2022-07-13] MEDS ORDERED: POTASSIUM CHLORIDE 10 MEQ TABER PO PRN (16:10)
[2022-07-13] MEDS ORDERED: ACETAMINOPHEN 325 MG TAB PO PRN (16:10)
[2022-07-13] MEDS ORDERED: ONDANSETRON 4 MG/2 ML VIAL IVP PRN (16:10)
[2022-07-13] MEDS ORDERED: MAGNESIUM OXIDE 400 MG TAB PO PRN (16:10)
--- NOTE | 2022-07-13 16:15 | NUR ---
sandra collected and sent to lab.
[2022-07-13] MEDS ORDERED: MAGN400S60 PO (16:21)
[2022-07-13] MEDS ORDERED: COLL30OI TP (16:21)
[2022-07-13] MEDS ORDERED: ZINC220C28 PO (16:21)
[2022-07-13] MEDS ORDERED: DOCU100T17 PO (16:21)
[2022-07-13] MEDS ORDERED: SENN-73 PO (16:21)
[2022-07-13] MEDS ORDERED: CRAN450T5 PO (16:21)
[2022-07-13] MEDS ORDERED: MIRABULK PO (16:21)
[2022-07-13] MEDS ORDERED: BISA-218 RC (16:21)
[2022-07-13] MEDS ORDERED: MEGE40TA17 PO (16:21)
[2022-07-13] MEDS: DEXT 5% / NACL 0.45% 1,000 ML IV SCH (17:28)
--- NOTE | 2022-07-13 19:17 | NUR ---
PT REPORT TO ANN SUTHERLAND
--- NOTE | 2022-07-13 22:18 | NUR ---
Patient will be admitted to care of [facility] Admited to telemery . Will go to room 107B. Belongings list completed. Report to joanne .
[2022-07-13] MEDS: KCL 20 MEQ IN 100 mL PREMIX 200 ML IV PRN (23:09)
[2022-07-14] VITALS: BP 144/79
[2022-07-14 04:00] VITALS: BP 145/69
[2022-07-14] MEDS: DEXT 5% / NACL 0.45% 1,000 ML IV SCH (07:15)
[2022-07-14 07:22] LABS: BASOPHILS % (AUTO) 0.4 % (0.0-2.0); EOSINOPHILS # (AUTO) 0.4 K/uL (0-0.4); EOSINOPHILS % (AUTO) 4.1 % (0.0-4.0); HEMATOCRIT 38.6 % (36-52); HEMOGLOBIN 12.2 g/dL (12.0-18.0); LYMPHOCYTES # (AUTO) 1.6 K/uL (2.0-11.5); LYMPHOCYTES % (AUTO) 17.5 % (20.5-51.1); MEAN CORPUSCULAR HEMOGLOBIN 29 pg (27-31); MEAN CORPUSCULAR HGB CONC 32 g/dL (33-37); MEAN CORPUSCULAR VOLUME 91.2 fL (80-94); MONOCYTES # (AUTO) 0.4 K/uL (0.8-1.0); MONOCYTES % (AUTO) 4.4 % (1.7-9.3); NEUTROPHILS # (AUTO) 6.5 K/uL (1.8-7.7); NEUTROPHILS % (AUTO) 73.6 % (42.2-75.2); PLATELET COUNT (AUTO) 163 K/uL (140-450); RED BLOOD CELL COUNT(AUTO) 4.23 MIL/uL (4.20-6.10); RED CELL DISTRIBUTION WIDTH 18.9 % (11.6-13.7); WHITE BLOOD COUNT (AUTO) 8.9 K/uL (4.8-10.8)
[2022-07-14 07:41] LABS: CHLORIDE 127 mmol/L (98-107); CREATININE 0.5 mg/dL (0.6-1.3); GLUCOSE 134 mg/dL (74-106); POTASSIUM 3.1 mmol/L (3.5-5.1); UREA NITROGEN, BLOOD 32 mg/dL (7-18)
[2022-07-14 07:48] LABS: ANION GAP 13.7 (8-16); CARBON DIOXIDE 24.4 mmol/L (21-32)
[2022-07-14 08:00] VITALS: BP 140/87
[2022-07-14 08:00] LABS: SODIUM SERUM 162 mmol/L (136-145)
--- NOTE | 2022-07-14 08:00 | NUR ---
NURSE REPORT REPORT OBTAINED FROM YAYO CLEMENS AT 0715 AND THIS NURSE ASSUMED CARE OF PATIENT. VSS. AFEB, TELE MONITOR WITH AFIB 97. NO C/O PAIN OR DISCOMFORT. IV D5 1/2NS AT 80 ML/HR INFUSING INTO L AC 18 G. . HARVEY DRAINING YELLOW URINE. NPO SINCE NOT ABLE TO EAT.
[2022-07-14 08:27] LABS: MAGNESIUM 2.4 mg/dL (1.8-2.4); PHOSPHORUS 2.9 mg/dL (2.5-4.9)
[2022-07-14] MEDS: DOCUSATE SODIUM 100 MG GELCAP PO SCH (08:45)
[2022-07-14] MEDS: KCL 20 MEQ IN 100 mL PREMIX 200 ML IV PRN ×2 (11:20→23:09)
--- NOTE | 2022-07-14 11:20 | NUR ---
NURSE NOTES DR NICOLE SENT A MESSAGE ABOUT THE K BEING 3.1 AND ORDER IS TO GIVE IV K IF THE K < 3.1 AND IT IS 3.1, PATIENT NOT ABLE TO EAT. DR NICOLE OKAY IV KCL AND 20 MEQ GIVEN AT 1120 AM.
--- NOTE | 2022-07-14 11:25 | NUR ---
NURSE NOTES DR NICOLE WAS NOTIFIED OF K BEING 3.1 AND HE IS AWARE PATIENT NOT ABLE TO EAT. OKAY TO GIVE KCL IV SINCE K IS NOT <3.1.
[2022-07-14 12:00] VITALS: BP 143/86
--- NOTE | 2022-07-14 12:28 | NUR ---
COMMUNICATION DR RIZO WOULD LIKE A BMP DONE AT 1900 AND TO BE CALL AT . WILL HAVE NIGHT NURSE CALL HIM WITH RESULTS. JING LEDESMA RN
[2022-07-14] MEDS ORDERED: FUROSEMIDE 20 MG/2 ML VIAL IVP ONE (12:55)
[2022-07-14 13:45] LABS: ANION GAP 12.1 (8-16); CARBON DIOXIDE 24.3 mmol/L (21-32); CHLORIDE 127 mmol/L (98-107); CREATININE 0.5 mg/dL (0.6-1.3); GLUCOSE 144 mg/dL (74-106); POTASSIUM 3.4 mmol/L (3.5-5.1); UREA NITROGEN, BLOOD 26 mg/dL (7-18)
[2022-07-14 13:55] LABS: SODIUM SERUM 160 mmol/L (136-145)
[2022-07-14] MEDS ORDERED: FUROSEMIDE 20 MG/2 ML VIAL IVP SCH (14:55)
[2022-07-14] MEDS: DEXTROSE 5% 1,000 ML IV SCH ×2 (15:11→16:13)
[2022-07-14 16:00] VITALS: BP 142/79
--- NOTE | 2022-07-14 19:15 | NUR ---
NURSE REPORT REPORT GIVEN TO NIGHT NURSE GENESIS Adam TO ASSUME CARE OF PATIENT. ALL QUESTIONS ANSWERED. JING LEDESMA RN Addendum: 07/14/22 at 2048 by Agency Nurse 25, RN RN GIVEN REPORT TO CALL THE MD. COMMUNICATION DR RIZO WOULD LIKE A BMP DONE AT 1900 AND TO BE CALL AT . WILL HAVE NIGHT NURSE CALL HIM WITH RESULTS. JING LEDESMA RN
--- NOTE | 2022-07-14 19:30 | NUR ---
RECEIVED REPORT FROM DAY SHIFT NURSE JING FOR CONTINUITY OF CARE. PATIENT IS A&O X1. PATIENT IS ON ROOM AIR, BREATHING IS NORMAL WITH SYMMETRICAL RISE AND FALL OF CHEST. IV IS A 18G RAC, RUNNING D5 100. PATIENT IS SLEEPING, LYING SEMI-FOWLERS POSITION. BED IS IN LOWEST POSITION, WHEELS LOCKED, CALL LIGHT IN PLACE. WILL CONTINUE TO OBSERVE PATIENT.
[2022-07-14 20:00] VITALS: BP 132/79
[2022-07-14] MEDS: METOPROLOL 50 MG TAB PO SCH (22:02)
--- NOTE | 2022-07-14 22:26 | NUR ---
DR. RIZO CALLED AT 2044 AND REQUESTED BMP RESULTS FROM 1899. NO RESULTS OR DRAWS COULD BE FOUND; TOLD ME TO PUT A STAT BMP ORDER IN AND STOP D5 FROM RUNNING. SAID HE WANTS RESULTS WITHIN 30 MINUTES. PUT ORDER IN AND CALLED LAB REQUESTING THAT THEY GIVE RESULTS WITHIN THE NEXT 30 MINUTES PER DOCTOR'S REQUEST. LAB SAID THEY WOULD DO THE BEST THEY COULD. SIGN DESIGNER CAME DOWN AND DAVID LABS AROUND 2129. MONITORED RESULTS; RESULTS ARE PENDING. AT 2199, ANOTHER CONICAL MIXER CAME DOWN TO DRAW MORE BLOOD, STATING THEY DIDN'T GET ENOUGH BLOOD ON THE PREVIOUS DRAW. CONICAL MIXER STATED SHE WILL RUN THE BLOOD STAT AND NOTIFY ME WHEN RESULTS ARE IN. RESULTS STILL PENDING.
[2022-07-14 22:36] LABS: ANION GAP 10.4 (8-16); CARBON DIOXIDE 27.4 mmol/L (21-32); CHLORIDE 124 mmol/L (98-107); CREATININE 0.6 mg/dL (0.6-1.3); GLUCOSE 113 mg/dL (74-106); UREA NITROGEN, BLOOD 24 mg/dL (7-18)
[2022-07-14 22:51] LABS: POTASSIUM 2.8 mmol/L (3.5-5.1); SODIUM SERUM 159 mmol/L (136-145)
[2022-07-14] MEDS ORDERED: DEXTROSE 5% 1,000 ML IV SCH (23:00)
[2022-07-15] VITALS: BP 123/75
--- NOTE | 2022-07-15 | NUR ---
RECEIVED CALL FROM LAB. CRITICAL LAB NA 159 [address] RIZO AND INFORMED HIM OF LABS. ORDERED 40MEQ KCL IV AND D5 AT 75. ADMINISTERED 40MEQ K RIDER PRN FROM [facility] AND PUT IN ORDER FOR D5 75 (D/C D5 AT 100). PATIENT IS LYING SEMI-FOWLERS POSITION, BED IS IN LOWEST POSITION, WHEELS LOCKED, CALL LIGHT IN PLACE. WILL CONTINUE TO OBSERVE PATIENT.
[2022-07-15 04:00] VITALS: BP 125/74
--- NOTE | 2022-07-15 04:00 | NUR ---
PATIENT HAD A BM. PATIENT WAS CHANGED AND CLEANED WITH THE ASSISTANCE OF VICK HURTADO. PATIENT HAD FOAM ADHESIVE BANDAGE ON COCCYX. BANDAGE WAS CHANGED DUE TO SOILAGE. NEW CHUCKS PADS AND DIAPER WAS APPLIED TO PATIENT. PATIENT'S CATHETER WAS EMPTIED; 450 ML URINE. IV IS RUNNING D5 AT 75. PATIENT IS LYING SEMI-FOWLERS. BREATHING IS NORMAL WITH SYMMETRICAL RISE AND FALL OF CHEST. WILL CONTINUE TO OBSERVE PATIENT.
[2022-07-15 06:32] LABS: BASOPHILS % (AUTO) 0.3 % (0.0-2.0); EOSINOPHILS # (AUTO) 0.2 K/uL (0-0.4); EOSINOPHILS % (AUTO) 2.3 % (0.0-4.0); HEMATOCRIT 34.7 % (36-52); LYMPHOCYTES # (AUTO) 1.5 K/uL (2.0-11.5); LYMPHOCYTES % (AUTO) 17.7 % (20.5-51.1); MEAN CORPUSCULAR HEMOGLOBIN 28 pg (27-31); MEAN CORPUSCULAR HGB CONC 32 g/dL (33-37); MEAN CORPUSCULAR VOLUME 89.1 fL (80-94); MONOCYTES # (AUTO) 0.3 K/uL (0.8-1.0); MONOCYTES % (AUTO) 3.5 % (1.7-9.3); NEUTROPHILS # (AUTO) 6.3 K/uL (1.8-7.7); NEUTROPHILS % (AUTO) 76.2 % (42.2-75.2); PLATELET COUNT (AUTO) 172 K/uL (140-450); RED CELL DISTRIBUTION WIDTH 18.1 % (11.6-13.7); WHITE BLOOD COUNT (AUTO) 8.3 K/uL (4.8-10.8)
[2022-07-15 06:44] LABS: ANION GAP 13.9 (8-16); CARBON DIOXIDE 24.8 mmol/L (21-32); CHLORIDE 124 mmol/L (98-107); CREATININE 0.5 mg/dL (0.6-1.3); GLUCOSE 113 mg/dL (74-106); POTASSIUM 3.7 mmol/L (3.5-5.1); UREA NITROGEN, BLOOD 24 mg/dL (7-18)
[2022-07-15 06:48] LABS: MAGNESIUM 2.1 mg/dL (1.8-2.4); PHOSPHORUS 2.7 mg/dL (2.5-4.9)
[2022-07-15 06:49] LABS: SODIUM SERUM 159 mmol/L (136-145)
[2022-07-15] MEDS ORDERED: DEXTROSE 5% 1,000 ML IV SCH ×2 (07:40→13:00)
--- NOTE | 2022-07-15 07:40 | NUR ---
MESSAGED MD RIZO OF CRITICAL LAB OF 159. ORDERED CHANGE IN RATE OF D5 TO 100ML/HR. PUT NEW ORDER IN. ENDORSED PATIENT TO DAY SHIFT NURSE.
--- NOTE | 2022-07-15 07:41 | NUR ---
ENDORSED TO DAY SHIFT NURSE OFELIA FOR CONTINUITY OF CARE. PATIENT IS STABLE.
[2022-07-15 08:00] VITALS: BP 128/74
--- NOTE | 2022-07-15 08:05 | NUR ---
PATIENT HAS BEEN SCREENED AND CATEGORIZED HIGH NUTRITION RISK. PATIENT WILL BE SEEN WITHIN 1-2 DAYS OF ADMISSION. 07/15/22-07/17/[address] REFERRAL RECEIVED FOR REFUSAL TO EAT > 3 DAYS.
[2022-07-15] MEDS: DOCUSATE SODIUM 100 MG GELCAP PO SCH (09:00)
[2022-07-15] MEDS: ECOTRIN 81 MG TABEC PO SCH (09:01)
[2022-07-15] MEDS: DIGOXIN 0.25 MG TAB PO SCH (09:01)
[2022-07-15] MEDS: METOPROLOL 50 MG TAB PO SCH ×2 (09:01→20:52)
[2022-07-15] MEDS: FUROSEMIDE 20 MG/2 ML VIAL IVP SCH (09:02)
[2022-07-15 11:30] VITALS: BP 117/65
[2022-07-15 13:18] LABS: ANION GAP 9.5 (8-16); CARBON DIOXIDE 27.8 mmol/L (21-32); CHLORIDE 121 mmol/L (98-107); CREATININE 0.5 mg/dL (0.6-1.3); GLUCOSE 102 mg/dL (74-106); POTASSIUM 3.3 mmol/L (3.5-5.1); SODIUM SERUM 155 mmol/L (136-145); UREA NITROGEN, BLOOD 23 mg/dL (7-18)
--- NOTE | 2022-07-15 13:21 | NUR ---
07/15/22 RD INITIAL ASSESSMENT COMPLETED. PLEASE REFER TO NUTRITION ASSESSMENT UNDER CARE ACTIVITY FOR ESTIMATED NUTRITIONAL NEEDS. 1. WHEN/IF MEDICALLY APPROPRIATE TO INITIATE TUBE FEEDING, RECOMMEND GLUCERNA 1.2 MONTY WITH A GOAL RATE OF 55 ML/HR -START AT 10 ML/HR AND INCREASE BY 10 ML Q4H UNTIL GOAL RATE IS REACHED PT TOLERATES -FWF 200 ML Q8H THIS WILL PROVIDE 1584 KCAL, 79 GRAMS OF PROTEIN, AND 1663 ML FREE WATER MEETING 100% OF ESTIMATED ENERGY NEEDS 2. IF PT UNABLE TO TOLERATE INITIATING TUBE FEEDING, AND WHEN/IF MEDICALLY APPROPRIATE TO HAVE PO INTAKE, RECOMMEND CARDIAC DIET WITH GLUCERNA 2X/DAY (GLUCERNA PROVIDES 440 KCAL, 20 GRAMS PROTEIN); TEXTURE PER SPEECH THERAPY. 2. MONITOR NPO STATUS 3. RD TO FOLLOW-UP 2-3 DAYS, HIGH RISK MARTINE PATINO RD
[2022-07-15 15:30] VITALS: BP 143/81
--- NOTE | 2022-07-15 16:00 | NUR ---
Not able to update I/O accurately due to missing information.
--- NOTE | 2022-07-15 19:30 | NUR ---
RECEIVED REPORT FROM DAY SHIFT NURSE OFELIA FOR CONTINUITY OF CARE. PATIENT IS A&O X1. PATIENT IS ON ROOM AIR, BREATHING IS NORMAL WITH SYMMETRICAL RISE AND FALL OF CHEST. IV IS A 18G RAC, RUNNING D5 75. PATIENT IS SLEEPING, LYING SEMI-FOWLERS POSITION. BED IS IN LOWEST POSITION, WHEELS LOCKED, CALL LIGHT IN PLACE. WILL CONTINUE TO OBSERVE PATIENT.
[2022-07-15 20:00] VITALS: BP 139/55
[2022-07-16] VITALS: BP 111/76
--- NOTE | 2022-07-16 | NUR ---
PATIENT HAS BEEN SLEEPING; LYING IN SEMI-FOWLERS POSITION. BREATHING IS NORMAL WITH SYMMETRICAL RISE AND FALL OF CHEST. HARVEY IS STILL CONNECTED TO PATIENT. IV IS STILL PATENT, RUNNING D5 AT 75. WILL CONTINUE TO OBSERVE PATIENT.
[2022-07-16 04:00] VITALS: BP 150/72
--- NOTE | 2022-07-16 04:30 | NUR ---
PATIENT HAD BM. PATIENT WAS CLEANED WITH THE ASSISTANCE OF MANUEL LUTZ. PICTURE WAS TAKEN OF COCCYX WOUND. NEW FOAM DRESSING WAS APPLIED TO COCCYX. PATIENT WAS ALSO GIVEN ORAL CARE BY MANUEL. PATIENT TOLERATED WELL. PATIENT IS LYING COMFORTABLY IN SEMI-FOWLERS POSITION. WILL CONTINUE TO OBSERVE PATIENT.
[2022-07-16 07:33] LABS: BASOPHILS % (AUTO) 0.6 % (0.0-2.0); EOSINOPHILS # (AUTO) 0.3 K/uL (0-0.4); EOSINOPHILS % (AUTO) 3.9 % (0.0-4.0); HEMATOCRIT 38.5 % (36-52); HEMOGLOBIN 12.4 g/dL (12.0-18.0); LYMPHOCYTES # (AUTO) 1.9 K/uL (2.0-11.5); LYMPHOCYTES % (AUTO) 22.9 % (20.5-51.1); MEAN CORPUSCULAR HEMOGLOBIN 29 pg (27-31); MEAN CORPUSCULAR HGB CONC 32 g/dL (33-37); MEAN CORPUSCULAR VOLUME 89.3 fL (80-94); MONOCYTES # (AUTO) 0.5 K/uL (0.8-1.0); NEUTROPHILS # (AUTO) 5.6 K/uL (1.8-7.7); NEUTROPHILS % (AUTO) 66.6 % (42.2-75.2); PLATELET COUNT (AUTO) 167 K/uL (140-450); RED BLOOD CELL COUNT(AUTO) 4.31 MIL/uL (4.20-6.10); RED CELL DISTRIBUTION WIDTH 17.6 % (11.6-13.7); WHITE BLOOD COUNT (AUTO) 8.4 K/uL (4.8-10.8)
--- NOTE | 2022-07-16 07:35 | NUR ---
RECEIVED REPORT FROM NIGHT NURSE GENESIS FOR CONTINUITY OF CARE. AWAKE, NON VERBAL. RESP. EVEN AND UNLABORED. IV SITE INTACT, ON SALINE LOCK. NO S/S OF ANY DISTRESS. CALL LIGHT KEPT WITHIN REACH. WILL CONTINUE TO MONITOR.
[2022-07-16 07:42] LABS: ANION GAP 13.6 (8-16); CARBON DIOXIDE 25.7 mmol/L (21-32); CHLORIDE 116 mmol/L (98-107); CREATININE 0.6 mg/dL (0.6-1.3); GLUCOSE 90 mg/dL (74-106); POTASSIUM 3.3 mmol/L (3.5-5.1); SODIUM SERUM 152 mmol/L (136-145); UREA NITROGEN, BLOOD 19 mg/dL (7-18)
[2022-07-16 07:45] LABS: MAGNESIUM 2.1 mg/dL (1.8-2.4); PHOSPHORUS 2.5 mg/dL (2.5-4.9)
--- NOTE | 2022-07-16 07:46 | NUR ---
ENDORSED TO DAY SHIFT NURSE CORY FOR CONTINUITY OF CARE. PATIENT IS STABLE. Addendum: 07/16/22 at 0748 by Shawn Pisano RN ENDORSED TO DAY SHIFT NURSE GIACOMO FOR CONTINUITY OF CARE. PATIENT IS STABLE.
[2022-07-16 08:00] VITALS: BP 143/83
--- NOTE | 2022-07-16 08:44 | NUR ---
PT. WITH LOW BETTY SCALE AT MODERATE TO HIGH RISK, CONTINUE TO FOLLOW PRESSURE INJURY PREVENTION INTERVENTIONS. -POSITIONING: TURN AND REPOSITION PATIENT Q 2H OR SOONER USE PILLOWS TO KEEP BONY PROMINENCES FROM DIRECT CONTACT WITH SURFACES USE REPOSITIONING WEDGES TO PROVIDE 30-DEGREE ANGLE FOR SIDE LYING POSITIONS OFFLOADING OR FOAM DRESSING TO ALL TUBING TO PREVENT MEDICAL DEVICES RELATED PRESSURE INJURY -RE-EVALUATING AND MANAGING INCONTINENCE MONITOR SKIN CONDITION DURING POSITION CHANGE DO NOT MASSAGE REDNESS, BONY PROMINENCES FREQUENT RAMIRO-CARE AND PROVIDE BARRIER CREAMS PRN IF SOILING MOISTURE CONTROL BY OFFER BED [place]/URINAL /ABSORBENT PAD TO WICK AND HOLD MOISTURE KEEP SKIN DRY AND PROTECT FROM FRICTION -MANAGE FRICTION/SHEAR/MOBILITY KEEP HOB AT THE LOWEST LEVEL OF ELEVATION NO MORE THAN 30 DEGREE UNLESS OTHERWISE CONTRAINDICATED USE LIFT SHEET OR TRANSFER DEVICE TO MOVE PATIENT AND PREVENT LATERAL SHEER. PROTECT HEELS, ELBOWS BONY PROMINENCES WITH SKIN BERRIES OR FOAM DRESSING IF EXPOSED TO FRICTION OFFLOAD BILATERAL HEELS BY PLACING PILLOWS UNDER CALVES AT ALL TIMES, UNLESS OTHERWISE CONTRAINDICATED -PRESSURE REDISTRIBUTION SURFACE THERAPY VICENTA ISOFLEX MATTRESS -NUTRITION: PLEASE FOLLOW RD RECOMMENDATIONS AND OFFER NUTRITION SUPPLEMENTS IF ORDERED. PLEASE CONTACT WOUND CARE NURSE FOR ANY QUESTION AND CHANGE OF WOUND CONDITION.
[2022-07-16] MEDS: FUROSEMIDE 20 MG/2 ML VIAL IVP SCH (10:12)
[2022-07-16] MEDS: DOCUSATE SODIUM 100 MG GELCAP PO SCH (10:13)
[2022-07-16] MEDS: METOPROLOL 50 MG TAB PO SCH ×2 (10:14→21:04)
[2022-07-16] MEDS: ECOTRIN 81 MG TABEC PO SCH (10:14)
[2022-07-16] MEDS: DIGOXIN 0.25 MG TAB PO SCH (10:14)
--- NOTE | 2022-07-16 10:15 | NUR ---
SCHEDULED MEDICATIONS GIVEN. TOLERATED WELL.
--- NOTE | 2022-07-16 11:51 | NUR ---
DC PLANNING ATTEMPTED TO MEET PT AT BEDSIDE HOWEVER, PER NOTES PT ANOX1, THEREFORE, SW OUTREACHED TO [facility] AND GATHERED COLLAT INFO FROM [facility] ADMIN. PIA REPORTS PT IS IN [facility] CARE WITH [facility], ADMISSION 10/04/20. PTS EMERGENCY CONTACT IS RADU [phone]. [facility] DENIES AD IN PLACE. DEMETRIOGUNNER REPORTS PT IS ANOX1 AT BASELINE AND IS REPORTED TO BE PRIMARILY BEDBOUND AND TOTAL CARE AT FACILITY. PT IS REPORTED NOT TO DISPLAY ANY BX'S AND IS COMPLAINT WITH CARE. PT HAS HX OF DIABETES THAT IS WELL CONTROLLED AT FACILITY. PIA REPORTS FAMILY IS ACTIVE IN CARE AND IS AWARE PT IS CURRENTLY ADMITTED TO [facility]. PIA REPORTS DC PLAN IS FOR PT TO RETURN TO [facility], ONCE MEDICALLY STABLE. Addendum: 07/16/22 at 1153 by Leelee BECKETT Amended: Links added.
[2022-07-16 12:00] VITALS: BP 125/76
[2022-07-16] MEDS: DEXTROSE 5% 1,000 ML IV SCH ×2 (12:44→22:05)
[2022-07-16] MEDS ORDERED: KCL 20 MEQ IN 100 mL PREMIX 200 ML IV SCH (13:00)
--- NOTE | 2022-07-16 13:15 | NUR ---
KCL IV GIVEN BY ANNA SUTHERLAND. TOLERATED WELL.
--- NOTE | 2022-07-16 14:24 | NUR ---
DC PLANNING A CASE OF 76 Y.O.MALE PATIENT ADMITTED FOR FAILURE TO THRIVE AND UTI.HX OF HTN,DM,CHRONIC A.FIB,PRIOR CVA WITH RESIDUAL LEFT SIDED HEMIPLEGIA,BPH WITH CHRONIC INDWELLING HARVEY CATHETER.BASELINE IS NON VERBAL.CARDIO FOLLOWING.EF 10-15%.SWALLOWING EVAL REQUESTED.MIGHT NEED PEG IF PATIENT FAILS SWALLOWING EVAL.DC PLAN- BACK TO [facility] WHEN PATIENT RESPONDS TO [place].CM TO FOLLOW. I Addendum: 07/19/22 at 1205 by HERBER WHELAN CM DC PLANNING PATIENT IS AWAKE BUT NON VERBAL.ALL CULTURES NEGATIVE.PATIENT HAS POOR INTAKE AND WILL NEED PEG PLACEMENT.DR. CARROLL SPOKE WITH DAUGHTER AND WILL DECIDE THIS AFTERNOON.CX TO DR. KATE () DONE BY DR. CARROLL.CM TO FOLLOW. Addendum: 07/19/22 at 1406 by HERBER WHELAN CM DC PLANNING PATIENT HAS POOR INTAKE DESPITE PASSING SWALLOWING EVAL.PATIENT STILL NEEDS PEG PLACEMENT.DR. CARROLL ASKED FOR CONSENT FROM THE DAUGHTER AND WILL DECIDE THIS PM.PATIENT IS AWAKE BUT NON VERBAL. Addendum: 07/19/22 at 1408 by HERBER WHELAN CM LATE ENTRY DUPLICATE ENTRY.RECALLING LAST ENTRY. Addendum: 07/19/22 at 1650 by Paola Larkin RN DC PLANNING: RECEIVED A CALL FROM PT'S DAUGHTER RADU STATED FAMILY DOESN'T WANT G-TUBE AND OG TO RETURN TO [facility]. SINCE PT PASSED SWALLOWING EVAL WILL DC PATIENT TO [facility]. SEEMA PALACIO AT [facility] PT CAN ROSELINE ROOM 49 # TO GIVE REPORT [phone]. JAILENE PROVIDE THE TRANSPORT AUTH [id number]. ARRANGED TRANSPORT WITH [facility] [place] [place] [facility] POLE TRUCK DRIVER TIME 6:30 PM NOTIFIED ARACELI JHA CM TO FOLLOW
[2022-07-16 16:00] VITALS: BP 115/74
--- NOTE | 2022-07-16 18:03 | NUR ---
SEEN BY DR. NORWOOD, FOR EGD WITH GASTROSTOMY TUBE PLACEMENT.
--- NOTE | 2022-07-16 18:44 | NUR ---
SEEN BY ST WITH RECOMMENDATIONS: PUREE, HONEY THICK LIQUID.
--- NOTE | 2022-07-16 19:30 | NUR ---
BEDSIDE REPORT GIVEN TO MARTINE FOR CONTINUITY OF CARE. REMAINS STABLE.
--- NOTE | 2022-07-16 19:30 | NUR ---
BEDSIDE REPORT GIVEN TO LUIS MIGUEL FOR CONTINUITY OF CARE. REMAINS STABLE. Addendum: 07/16/22 at 1941 by GIACOMO VAZQUEZ LVN ENTERED WRONG DOCUMENTATION.
--- NOTE | 2022-07-16 19:31 | NUR ---
RECEIVED REPORT FROM NURSE GIACOMO FOR CONTINUITY OF CARE. PATIENT AWAKE NON VERBAL RESTING IN ROOM AIR. NO SOB NOTED. BREATHING NORMAL WITH SYMMETRICAL RISE AND FALL OF THE CHEST. IVF D5% INFUSING ORDERED TO RAC. HARVEY CATHETER DRAINING CLEAR YELLOW URINE. BED WHEELS LOCKED IN LOW POSITION. CALL LIGHT WITHIN REACH.
[2022-07-16 20:00] VITALS: BP 123/60
--- NOTE | 2022-07-16 21:03 | NUR ---
SCHEDULED MEDS GIVEN PER MD ORDER.
[2022-07-17] VITALS: BP 118/60
[2022-07-17 04:00] VITALS: BP 124/79
[2022-07-17 07:09] LABS: CARBON DIOXIDE 25.1 mmol/L (21-32); CHLORIDE 112 mmol/L (98-107); CREATININE 0.5 mg/dL (0.6-1.3); GLUCOSE 104 mg/dL (74-106); POTASSIUM 3.1 mmol/L (3.5-5.1); SODIUM SERUM 147 mmol/L (136-145); UREA NITROGEN, BLOOD 18 mg/dL (7-18)
[2022-07-17 07:14] LABS: MAGNESIUM 1.9 mg/dL (1.8-2.4); PHOSPHORUS 2.7 mg/dL (2.5-4.9)
[2022-07-17 07:27] LABS: BASOPHILS % (AUTO) 0.4 % (0.0-2.0); EOSINOPHILS # (AUTO) 0.2 K/uL (0-0.4); EOSINOPHILS % (AUTO) 2.5 % (0.0-4.0); HEMATOCRIT 35.1 % (36-52); HEMOGLOBIN 11.4 g/dL (12.0-18.0); LYMPHOCYTES # (AUTO) 1.8 K/uL (2.0-11.5); LYMPHOCYTES % (AUTO) 21.1 % (20.5-51.1); MEAN CORPUSCULAR HEMOGLOBIN 29 pg (27-31); MEAN CORPUSCULAR HGB CONC 33 g/dL (33-37); MEAN CORPUSCULAR VOLUME 89.1 fL (80-94); MONOCYTES # (AUTO) 0.5 K/uL (0.8-1.0); MONOCYTES % (AUTO) 5.4 % (1.7-9.3); NEUTROPHILS # (AUTO) 6.2 K/uL (1.8-7.7); NEUTROPHILS % (AUTO) 70.6 % (42.2-75.2); PLATELET COUNT (AUTO) 185 K/uL (140-450); RED BLOOD CELL COUNT(AUTO) 3.95 MIL/uL (4.20-6.10); RED CELL DISTRIBUTION WIDTH 16.9 % (11.6-13.7); WHITE BLOOD COUNT (AUTO) 8.8 K/uL (4.8-10.8)
--- NOTE | 2022-07-17 07:28 | NUR ---
BEDSIDE REPORT GIVEN TO AM NURSE FOR CONTINUITY OF CARE.
--- NOTE | 2022-07-17 07:41 | NUR ---
Patient's Plan of Care was discussed and reviewed with BABY STROLLER RENTAL CLERK:
[2022-07-17 08:00] VITALS: BP 116/69
--- NOTE | 2022-07-17 08:17 | NUR ---
CALLED PT DAUGHTER RADU REGARDING PENDING PT PROCEDURE. PHONE CALL NOT ANSWERED, ANSWERING MACHINE NOT WORKING. CALLED [facility] FAC[facility] TO ASK FOR UPDATED FAMILY NUMBER. PER CHARGE NURSE KADE, FAMILY HAS NOT BEEN RETURNING MULTIPLE CALLS FROM [facility] IN PAST. NO UPDATED NUMBER ON FILE. FAMILY NOT INVOLVED IN CARE. INFORMED SHARON CHARGE NURSE OF SITUATION.
[2022-07-17] MEDS: DEXTROSE 5% 1,000 ML IV SCH ×3 (08:39→23:18)
[2022-07-17] MEDS: DIGOXIN 0.25 MG TAB PO SCH (09:00)
[2022-07-17] MEDS: METOPROLOL 50 MG TAB PO SCH ×2 (09:00→20:45)
[2022-07-17] MEDS: DOCUSATE SODIUM 100 MG GELCAP PO SCH (09:00)
[2022-07-17] MEDS: FUROSEMIDE 20 MG/2 ML VIAL IVP SCH (09:00)
--- NOTE | 2022-07-17 09:19 | NUR ---
PT REFUSED ORAL MEDICATIONS. PROVIDED PATIENT TEACHING PATIENT NODS HEAD IN AGREEMENT. PT NODS HEAD NO ONCE TIME TO TAKE. PROVIDED TEACHING AGAIN REGARDING MEDICATION, PT REFUSES.
[2022-07-17] MEDS: KCL 20 MEQ IN 100 mL PREMIX 200 ML IV SCH ×2 (11:53→15:49)
--- NOTE | 2022-07-17 13:15 | NUR ---
IV POTASSIUM GIVEN BY KOKO HERNANDEZ.
[2022-07-17 14:00] VITALS: BP 92/58
--- NOTE | 2022-07-17 14:50 | NUR ---
07/17/22 RD FOLLOW UP COMPLETED PLEASE REFER TO NUTRITION ASSESSMENT UNDER CARE ACTIVITY FOR ESTIMATED NUTRITIONAL NEEDS. 1. MONITOR NPO STATUS 2. WHEN/IF MEDICALLY APPROPRIATE TO INITIATE TUBE FEEDING, RECOMMEND GLUCERNA 1.2 MONTY WITH A GOALRATE OF 55 ML/HR -FWF 200 ML Q8H OR PER MD THIS WILL PROVIDE 1584 KCAL, 79 GRAMS OF PROTEIN, AND 1663 ML FREE WATER MEETING 100% OF ESTIMATED ENERGY NEEDS -START AT 10 ML/HR AND INCREASE BY 10 ML Q4H UNTIL GOAL RATE IS REACHED PT TOLERATES 3. IF PO DIET READY TO BE INITIATED, RECOMMEND CARDIAC, PUREE DIET WITH HONEY THICK LIQUIDS AND GLUCERNA SHAKE BID TOLERATED - GLUCERNA PROVIDES 440 KCAL, 20 GRAMS PROTEIN DAILY 3. RD TO FOLLOW-UP 2-3 DAYS, HIGH RISK REVIEWED BY MINNA SHAH RD
--- NOTE | 2022-07-17 15:55 | NUR ---
IV MEDICATION GIVEN BY KOKO HERNANDEZ.
[2022-07-17 16:00] VITALS: BP 110/71
--- NOTE | 2022-07-17 19:20 | NUR ---
ENDORSED PT TO FILLING STATION EQUIPMENT MECHANIC NURSE FOR CONTINUITY OF CARE. PT IS STABLE.
[2022-07-17 20:00] VITALS: BP 112/68
--- NOTE | 2022-07-17 20:45 | NUR ---
SCHEDULED DUE MEDICATIONS ADMINISTERED.
--- NOTE | 2022-07-17 20:50 | NUR ---
PATIENT AWAKE NO S/S OF RESPIRATORY DISTRESS. BREATHING REGULAR NON LABORED. BED WHEELS LOCKED IN LOW POSITION. HARVEY CATHETER IN PLACE DRAINING WELL. FLACC 0. SKIN WARM AND DRY TO THE TOUCH.
[2022-07-18] VITALS: BP 103/60
[2022-07-18 04:00] VITALS: BP 99/62
[2022-07-18] MEDS: DEXTROSE 5% 1,000 ML IV SCH ×2 (04:05→14:48)
[2022-07-18 06:52] LABS: ANION GAP 11.9 (8-16); CARBON DIOXIDE 24.4 mmol/L (21-32); CHLORIDE 107 mmol/L (98-107); CREATININE 0.5 mg/dL (0.6-1.3); GLUCOSE 111 mg/dL (74-106); POTASSIUM 3.3 mmol/L (3.5-5.1); SODIUM SERUM 140 mmol/L (136-145); UREA NITROGEN, BLOOD 11 mg/dL (7-18)
[2022-07-18 06:53] LABS: BASOPHILS # (AUTO) 0.1 K/uL (0.00-0.22); BASOPHILS % (AUTO) 0.7 % (0.0-2.0); EOSINOPHILS # (AUTO) 0.3 K/uL (0-0.4); EOSINOPHILS % (AUTO) 3.8 % (0.0-4.0); HEMATOCRIT 32.1 % (36-52); HEMOGLOBIN 10.5 g/dL (12.0-18.0); LYMPHOCYTES # (AUTO) 1.8 K/uL (2.0-11.5); LYMPHOCYTES % (AUTO) 21.8 % (20.5-51.1); MEAN CORPUSCULAR HEMOGLOBIN 29 pg (27-31); MEAN CORPUSCULAR HGB CONC 33 g/dL (33-37); MONOCYTES # (AUTO) 0.4 K/uL (0.8-1.0); MONOCYTES % (AUTO) 4.7 % (1.7-9.3); NEUTROPHILS # (AUTO) 5.6 K/uL (1.8-7.7); PLATELET COUNT (AUTO) 138 K/uL (140-450); RED BLOOD CELL COUNT(AUTO) 3.65 MIL/uL (4.20-6.10); RED CELL DISTRIBUTION WIDTH 17.5 % (11.6-13.7); WHITE BLOOD COUNT (AUTO) 8.1 K/uL (4.8-10.8)
--- NOTE | 2022-07-18 07:24 | NUR ---
BEDSIDE REPORT GIVEN TO AM NURSE FOR CONTINUITY OF CARE.
--- NOTE | 2022-07-18 07:25 | NUR ---
RECEIVED REPORT FROM RN ORTHO NURSE, DASHA FOR CONTINUITY OF CARE. PT IN BED AT THIS TIME SLEEPING. RESPIRATIONS ARE EVEN AND UNLABORED ON ROOM AIR. NO SIGNS OF DISTRESS NOTED. PT IS ALERT AND ORIENTED X1, CARDIAC MONITORING AT THIS TIME SHOWS SR. PT ABD IS NONTENDER, NONDISTENDED WITH BOWEL SOUNDS NOTED. PT HAD LARGE BOWEL MOVEMENT THIS MORNING. PT IS INCONTINENT OF BOWEL, AND HAS HARVEY CATHETER PLACE, DRAINING YELLOW URINE. PT HAS IV TO RAC. PER RN ORTHO NURSE, PT IS NPO AT THIS TIME DUE TO POSSIBLE EGD WITH PEG TUBE PLACEMENT. AWAITING CONSENT. CALL LIGHT WITHIN REACH. ALL SAFETY MEASURES IN PLACE.
[2022-07-18 08:00] VITALS: BP 126/62
--- NOTE | 2022-07-18 08:00 | NUR ---
Patient's Plan of Care was discussed and reviewed with SEAPORT PLANNING MANAGER: SUJEY
[2022-07-18 08:22] LABS: MAGNESIUM 1.6 mg/dL (1.8-2.4); PHOSPHORUS 2.2 mg/dL (2.5-4.9)
[2022-07-18] MEDS: DIGOXIN 0.25 MG TAB PO SCH (08:41)
[2022-07-18] MEDS: DOCUSATE SODIUM 100 MG GELCAP PO SCH (08:41)
[2022-07-18] MEDS: METOPROLOL 50 MG TAB PO SCH ×2 (08:42→20:32)
[2022-07-18 08:55] LABS: PROTHROMBIN TIME 10.4 secs (10.8-13.4)
[2022-07-18] MEDS: FUROSEMIDE 20 MG/2 ML VIAL IVP SCH (09:14)
--- NOTE | 2022-07-18 09:39 | NUR ---
DR PAULSON CALLED AND REQUESTED AN ORDER FOR ST HAIR.
--- NOTE | 2022-07-18 10:00 | NUR ---
INFORMED DR PAULSON THAT PT ALREADY HAD ST EVAL DONE, AND PER SPEECH THERAPIST RECOMMENDATION, PUREE WITH HONEY THICKENED LIQUIDS. AWAITING REPLY.
--- NOTE | 2022-07-18 11:12 | NUR ---
DR PAULSON CALLED BACK, STATED THAT HE MAY NOT PERFORM EGD WITH PEG PLACEMENT, STATES HE WILL SPEAK WITH DR CARROLL REGARDING THE ISSUE AND WILL REASSESS PLAN OF CARE.
[2022-07-18] MEDS ORDERED: MAG SULF 2000 MG/WATER PREMIX 50 ML IV SCH (11:27)
[2022-07-18 12:00] VITALS: BP 107/72
--- NOTE | 2022-07-18 13:00 | NUR ---
ATTEMPTED TO FEED PT. PT CONTINUES TO REFUSE. OFFERED DIFFERENT FOOD TO PT. PT CONTINUES TO SHAKE HEAD. WILL ATTEMPT AT LATER TIME.
[2022-07-18 16:00] VITALS: BP 104/79
[2022-07-18] MEDS ORDERED: POTASSIUM PHOSPHATE 30 MM in NACL 0.9% 500 ML IV SCH (16:00)
--- NOTE | 2022-07-18 16:22 | NUR ---
WENT TO CHECK ON PT. PT IN BED RESTING AT THIS TIME. RESPIRATIONS ARE EVEN AND UNLABORED. NO SIGNS OF DISTRESS NOTED.
--- NOTE | 2022-07-18 18:09 | NUR ---
PT WAS SEEN FOR DYSPHAGIA. PTW ABLE TO SAFELY SWALLOW PUREE DIET WITH NECTAR THICK LIQUID. MILD COUGH FOR THIN LIQUID. RECOMMENDATION PUREE DIET WITH NTL
--- NOTE | 2022-07-18 18:20 | NUR ---
ST THERAPIST HERE TO SEE PT. SUGGESTED PUREE DIET WITH NECTAR THICK LIQUIDS.
--- NOTE | 2022-07-18 19:18 | NUR ---
ENDORSED PT TO COMPUTER APPLICATIONS DEVELOPER NURSEJACKY, FOR CONTINUITY OF CARE. PT IS STABLE.
--- NOTE | 2022-07-18 19:19 | NUR ---
RECEIVED PT FROM MORNING SHIFT NURSE. PT IS AOX1 AND BEDBOUND. PT IS ON ROOM AIR AND ON PUREE DIET WITH HONEY THICK. PT HAS HARVEY CATHETER AND HAS IV ON RIGHT UPPER ARM GAUGE 18 RUNNING WITH POTASSIUM PHOSPHATE AT 84ML/HR. PT HAS HEALING WOUND ON COCCYX. NO S/S OF RESPIRATORY DISTRESS NOTED. ALL SAFETY MEASURES IMPLEMENTED. BED IN LOW POSITION, BED WHEELS ON LOCK AND CALL LIGHT WITHIN REACH.
[2022-07-18 20:00] VITALS: BP 116/66
--- NOTE | 2022-07-18 20:28 | NUR ---
HEPARIN WAS GIVEN TO PT PER MD ORDER. METOPROLOL WAS NOT GIVEN TO PT DUE TO LOW PULSE OF 59. ALL SAFETY MEASURES IMPLEMENTED. BED IN LOW POSITION, BED WHEELS ON LOCK AND CALL LIGHT WITHIN REACH.
--- NOTE | 2022-07-18 22:30 | NUR ---
DONE WITH POTASSIUM PHOSPHATE AT 84ML/HR AND CONTINUE HANG D5 IV RUNNING AT 100ML/HR. TO PT PER MD ORDER. ALL SAFETY MEASURES IMPLEMENTED. BED IN LOW POSITION, BED WHEELS ON LOCK AND CALL LIGHT WITHIN REACH.
[2022-07-19] VITALS: BP 126/78
--- NOTE | 2022-07-19 | NUR ---
PT IS ON SLEEP. CHEST RISE AND FALL SYMMETRICALLY NOTED. RESPIRATION IS EVEN AND UNLABORED. ALL SAFETY MEASURES IMPLEMENTED. BED IN LOW POSITION, BED WHEELS ON LOCK AND CALL LIGHT WITHIN REACH.
[2022-07-19] MEDS: DEXTROSE 5% 1,000 ML IV SCH ×2 (00:05→09:08)
--- NOTE | 2022-07-19 02:00 | NUR ---
CHECKED THE PT, STILL ON SLEEP. CHEST RISE AND FALL SYMMETRICALLY NOTED. RESPIRATION IS EVEN AND UNLABORED. ALL SAFETY MEASURES IMPLEMENTED. BED IN LOW POSITION, BED WHEELS ON LOCK AND CALL LIGHT WITHIN REACH.
[2022-07-19 04:00] VITALS: BP 132/83
--- NOTE | 2022-07-19 04:00 | NUR ---
MORNING CARE WAS DONE TO PT. CHANGED CHUCKS, LINENS AND GOWN. ALL SAFETY MEASURES IMPLEMENTED. BED IN LOW POSITION, BED WHEELS ON LOCK AND CALL LIGHT WITHIN REACH.
--- NOTE | 2022-07-19 06:37 | NUR ---
UTILITIES GROUND WORKER HAIM HAD HARD TIME TO GET BLOOD FROM PT. SHE WILL COME BACK LATER AND ASK HELP FOR ANOTHER UTILITIES GROUND WORKER TO HAVE BLOOD SAMPLE.
--- NOTE | 2022-07-19 07:31 | NUR ---
PT IS STABLE. ENDORSED PT TO MORNING NURSE FOR CONTINUITY OF CARE.
--- NOTE | 2022-07-19 07:47 | NUR ---
GOT REPORT FROM THE NIGHT NURSE, PT IS AWAKE NO SOB.[id number]
[2022-07-19 07:50] LABS: ANION GAP 9.2 (8-16); CARBON DIOXIDE 25.2 mmol/L (21-32); CHLORIDE 106 mmol/L (98-107); CREATININE 0.5 mg/dL (0.6-1.3); GLUCOSE 119 mg/dL (74-106); POTASSIUM 3.4 mmol/L (3.5-5.1); SODIUM SERUM 137 mmol/L (136-145); UREA NITROGEN, BLOOD 7 mg/dL (7-18)
[2022-07-19 07:54] LABS: PHOSPHORUS 3.4 mg/dL (2.5-4.9)
[2022-07-19 08:00] VITALS: BP 126/75
[2022-07-19] MEDS: FUROSEMIDE 20 MG/2 ML VIAL IVP SCH (08:59)
[2022-07-19] MEDS: DOCUSATE SODIUM 100 MG GELCAP PO SCH (09:00)
[2022-07-19] MEDS: METOPROLOL 50 MG TAB PO SCH (09:00)
[2022-07-19] MEDS: DIGOXIN 0.25 MG TAB PO SCH (09:01)
[2022-07-19] MEDS: KCL 20 MEQ IN 100 mL PREMIX 200 ML IV PRN ×2 (11:05→16:16)
[2022-07-19 12:00] VITALS: BP 135/65
[2022-07-19] MEDS ORDERED: KCL 20 MEQ IN 100 mL PREMIX 200 ML IV ONE (12:30)
--- NOTE | 2022-07-19 15:20 | NUR ---
07/19/22 FOLLOW UP COMPLETED PLEASE REFER TO NUTRITION ASSESSMENT UNDER CARE ACTIVITY FOR ESTIMATED NUTRITIONAL NEEDS. 1. CONTINUE WITH PUREE, HONEY THICK LIQUID TOLERATED -MONITOR PO INTAKE 2. WHEN/IF MEDICALLY APPROPRIATE TO START TUBE FEEDING, RECOMMEND GLUCERNA 1.2 @55ML/HR WITH FWF OF 200ML Q8H -START AT 20ML/HR AND INCREASE BY 10ML Q4H TOLERATED UNTIL THE GOAL RATE IS REACHED -WILL PROVIDE 1584 KCAL, 79G PROTEIN AND 1663ML FREE WATER, MEETING 100% OF ESTIMATED NUTRITIONAL NEEDS 3. RD TO FOLLOW-UP 2-3 DAYS, HIGH RISK BRITNEY ALBRIGHT RD
[2022-07-19 16:00] VITALS: BP 100/64
[2022-07-19] MEDS ORDERED: ACET-9525 PO (16:20)
[2022-07-19 16:51] VITALS: BP 100/64
--- NOTE | 2022-07-19 18:24 | NUR ---
PT DISCHARGED TO [facility] , DISCHARGE INSTRUCTION GIVEN , ID AND IV REMOVED, PT LEFT WITH HARVEY CATH, AWARE, REPORT GIVEN THE THE NURSE IN [facility], PT LEFT WITH TRANSPORTER WITH OUT ANY DISCOMFORT. [id number]
[2022-07-20] MEDS ORDERED: POTASSIUM CHLORIDE 10 MEQ TABER PO SCH (09:00)
[2022-07-20] MEDS ORDERED: FUROSEMIDE 40 MG TAB PO SCH (09:00)
== END 2022-07-19 18:20 | DRG 466 ==
LOC: MED 11:58 → MTU 16:10
PROVIDERS: ADMIT Hospitalist; ATTEND Student in an Organized Health Care Education/Training Program
DX: T83.511A Infection and inflammatory reaction due to indwelling urethral catheter, initial encounter (principal); I21.4 Non-ST elevation (NSTEMI) myocardial infarction; E44.1 Mild protein-calorie malnutrition; E87.0 Hyperosmolality and hypernatremia; I48.20 Chronic atrial fibrillation, unspecified; D63.8 Anemia in other chronic diseases classified elsewhere; I42.9 Cardiomyopathy, unspecified; E86.0 Dehydration; I50.22 Chronic systolic (congestive) heart failure; I69.351 Hemiplegia and hemiparesis following cerebral infarction affecting right dominant side; Z68.22 Body mass index [BMI] 22.0-22.9, adult; E87.6 Hypokalemia; N40.0 Benign prostatic hyperplasia without lower urinary tract symptoms; Y84.6 Urinary catheterization as the cause of abnormal reaction of the patient, or of later complication, without mention of misadventure at the time of the procedure; F03.90 Unspecified dementia, unspecified severity, without behavioral disturbance, psychotic disturbance, mood disturbance, and anxiety; Z20.822 Contact with and (suspected) exposure to COVID-19; E11.9 Type 2 diabetes mellitus without complications; I11.0 Hypertensive heart disease with heart failure; I35.1 Nonrheumatic aortic (valve) insufficiency; Z85.46 Personal history of malignant neoplasm of prostate; I69.320 Aphasia following cerebral infarction; Z79.1 Long term (current) use of non-steroidal anti-inflammatories (NSAID); Z79.899 Other long term (current) drug therapy; Y92.89 Other specified places as the place of occurrence of the external cause
CPT/HCPCS: 36415; 71045; 80048; 80053; 80162; 81001; 82550; 83605; 83735; 83880; 84100; 84484; 85025; 85610; 85730; 87040; 87081; 87086; 92526; 96361; 96365; 99291; J0696; J1644; J1940; J3475; J3480; J7030; J7060